=== PATIENT | female | born 1945 | race Hispanic/Latino ===

== ENCOUNTER 2016-08-08 09:25 | Day surgery (SDC) | payer MEDICARE, OTHER ==
[2015-11-10 09:09] VITALS: BMI 44.3
[2016-08-08] MEDS ORDERED: Propofol 10 mg/ml Inj (20 ML) ONE (11:38)
[2016-08-08] MEDS ORDERED: Lactated Ringer's 1,000 ML IV SCH (12:20)
[2016-08-08 12:37] VITALS: RESP 16
[2016-08-08 13:15] VITALS: BP 139/81; TEMP 97.7
[2016-08-08 13:35] VITALS: PULSE 68; O2SAT 96
== END 2016-08-08 13:56 | disposition home or self-care (01) ==
LOC: ENDO 09:25
PROVIDERS: ATTEND Internal Medicine Gastroenterology
DX: K29.50 Unspecified chronic gastritis without bleeding (principal); K44.9 Diaphragmatic hernia without obstruction or gangrene; K21.9 Gastro-esophageal reflux disease without esophagitis
CPT/HCPCS: 43239; 88305; 88342; J2704; J7040; J7120

== ENCOUNTER 2017-05-23 09:20 | Emergency (ER) | payer MEDICARE, OTHER ==
[2017-05-23 09:21] VITALS: BMI 44.3
[2017-05-23 09:36] VITALS: TEMP 98.4; O2SAT 98
--- NOTE | 2017-05-23 10:08 | ED PDOC ---
Arrival/HPI - General Chief Complaint: Trauma Time Seen by Provider: 05/23/17 09:56 Historian: Patient - History of Present Illness Narrative History of Present Illness (Text): 05/23/17 10:05 pt p/w + accidental trip and fall, just prior to ED arrival; pt was just walking [place] of the fitness center and did not see an uneven ground and proceeded to trip and fall; pt states she face-planted, NO LOC pre/post fall, no neck pain, NO numbness/tingling, no vision changes, no fever/chills/sweats, no cp/sob/palpitations, no abd pain, no n/v, no slurr speech, no urinary/bowel changes, no travel/sick contact; pt states she typically use a cane for ambulations since her abdominal surgery some times ago; pt also would use her walker; pt was walking with her cane today; pt is here for further eval; pt denied other complaints PCP: Dr Melton pt is right hand dominate tetanus: unknown Time/Duration: Prior to Arrival Symptom Onset: Sudden Symptom Course: Unchanged Quality: Tightness, Cramping Severity Level: 5, Moderate Activities at Onset: Other (walking) Context: Other (was coming out of the fitness center) Past Medical History - Provider Review Nursing Documentation Reviewed: Yes - Travel History Have you recently traveled outside [place] w/in the past 3 mons?: No - Past History Past History: No Previous - Infectious Disease Hx of Infectious Diseases: None - Tetanus Immunization Tetanus Immunization: Unknown - Reproductive Menopause: Yes - Cardiac Hx Hypertension: Yes Hx Pacemaker: No - Pulmonary Hx Respiratory Disorders: Yes Hx Bronchitis: Yes Other/Comment: had 1 asthma like attack when in park once - Neurological Hx Paralysis: No - HEENT Hx HEENT Disorder: Yes Hx Cataracts: Yes (ou but no sx yet) - Renal Hx Renal Disorder: No - Endocrine/Metabolic Hx Endocrine Disorders: No Hx Hypothyroidism: Yes - Hematological/Oncological Hx Blood Transfusions: No Hx Blood Transfusion Reaction: No - Integumentary Hx Dermatological Disorder: No - Musculoskeletal/Rheumatological Hx Musculoskeletal Disorders: Yes ("CONGENITAL EXTRA VERTEBRAE") - Gastrointestinal Hx Gastrointestinal Disorders: Yes Hx Diverticulitis: Yes Other/Comment: hemmorhoids - Genitourinary/Gynecological Hx Genitourinary Disorders: Yes Other/Comment: 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 - Psychiatric Hx Emotional Abuse: No Hx Physical Abuse: No Hx Substance Use: No - Past Surgical History Past Surgical History: No Previous - Surgical History Hx Hysterectomy: Yes Other/Comment: repair of abd hernia June 2013 & then I& D of surgical site July 2013 - Anesthesia Hx Anesthesia: Yes Hx Anesthesia Reactions: No Hx Malignant Hyperthermia: No - Suicidal Assessment Feels Threatened In Home Enviroment: No Family/Social History - Physician Review Nursing Documentation Reviewed: Yes Family/Social History: No Known Family HX Smoking Status: Never Smoked Hx Alcohol Use: No Hx Substance Use: No Hx Substance Use Treatment: No Allergies/Home Meds Allergies/Adverse Reactions: Allergies No Known Allergies Allergy (Verified 05/23/17 09:36) Home Medications: Home Meds Medication Instructions Recorded Confirmed hydroCHLOROthiazide [Microzide] 12.5 mg PO DAILY 07/23/15 05/23/17 Aspirin [Ecotrin] 81 mg PO DAILY 08/13/15 05/23/17 [id number] Ethyl Esters [OMEGA 3] 500 mg PO DAILY 08/13/15 05/23/17 Calcium/Magnesium [Calcium with 1 tab PO DAILY 08/04/16 05/23/17 Magnesium Tab] Cholecalciferol (Vitamin D3) 50,000 unit PO MON 08/04/16 05/23/17 [Vitamin D3] Ferrous Sulfate [Feosol] 325 mg PO DAILY 08/04/16 05/23/17 Ibuprofen [Advil] 400 mg PO PRN PRN 08/04/16 05/23/17 Levothyroxine [Synthroid] 125 mcg PO QD5 08/04/16 05/23/17 Naproxen Sodium [Aleve] 220 mg PO PRN PRN 08/04/16 05/23/17 Review of Systems - Review of Systems Constitutional: Normal Eyes: Normal ENT: Normal Respiratory: Normal Cardiovascular: Normal Gastrointestinal: Normal Genitourinary Female: Normal Musculoskeletal: Other (facial pain) Skin: Normal. absent: Laceration Neurological: Headache. absent: Dizziness Endocrine: Normal Hemo/Lymphatic: Normal Psychiatric: Normal Physical Exam Vital Signs Reviewed: Yes Vital Signs Temp Pulse Resp BP Pulse Ox 05/23/17 11:30 80 15 136/90 05/23/17 09:28 98.4 F 78 16 113/68 98 Temperature: Afebrile Blood Pressure: Normal Pulse: Regular Respiratory Rate: Normal Appearance: Positive for: Well-Appearing, Non-Toxic, Uncomfortable, Other (alert /awake, GCS = 15, oriented x 3, uncomfortable, NAD, cooperative, respond to questions appropriately) Pain Distress: None Mental Status: Positive for: Alert and Oriented X 3 - Systems Exam Head: Present: Normocephalic, Other (+ anterior nasal, multiple skin abrasions noted, no lacerations noted; no nasal bleeding noted; no gross swelling noted) Pupils: Present: PERRL, Other (wearing eyeglasses, no nystagmus, no photophobia , sclera anicteric, visual field intact b/l) Extroacular Muscles: Present: EOMI Conjunctiva: Present: Normal Ears: Present: Normal Mouth: Present: Moist Mucous Membranes, Normal Teeth, Other (fair dentitions, no drooling/stridor, no exudate/lesions, uvula/tongue are midline) Pharnyx: Present: Normal Nose (External): Present: Abrasion. No: Laceration, Lesions Nose (Internal): Present: Normal Inspection, No Active Bleeding, Moist. No: Septal Hematoma, Epistaxis Neck: Present: Normal Range of Motion, Trachea Midline, Other (intact ROM, no midline tenderness, no step off, no nuchal rigidity, no meningeal signs). No: MIDLINE TENDERNESS Respiratory/Chest: Present: Clear to Auscultation, Good Air Exchange, Other ( CTA b/l, no w/r/r, no accessory muscle use noted, no tachypenia) Cardiovascular: Present: Regular Rate and Rhythm, Normal S1, S2 Abdomen: Present: Normal Bowel Sounds, Other (well nourished female, no focal tenderness, no masses/rebound/guarding/rigidity, no larsen's sign, no mcburney' s point tenderness) Back: Present: Normal Inspection. No: CVA Tenderness, Midline Tenderness Upper Extremity: Present: Normal Inspection, Normal ROM, NORMAL PULSES, Neurovascularly Intact, Capillary Refill < 2s Lower Extremity: Present: Normal Inspection, NORMAL PULSES, Normal ROM, Neurovascularly Intact, Capillary Refill < 2 s, Other (strength 5/5 grossly intact in all limbs, neurovasc intact b/l, no gross deformities, + ambulatory) Neurological: Present: GCS=15, CN II-XII Intact, Speech Normal Skin: Present: Warm, Normal Color Psychiatric: Present: Alert, Oriented x 3 Medical Decision Making ED Course and Treatment: 05/23/17 10:05 Impression: face pain, s/p trip and fall i have consider all the differential diagnosis regarding pt's chief medical complaints/clinical findings, including but are not limited to: r/o open fx (r/ o facial fx) A/P: face pain, face injuries, trip and fall - ct - wound care - observe - supportive care 05/23/2017 10:[address] IMPRESSION: Unremarkable non contrast enhanced CT of the maxillofacial bones. Dictator: Angus Candelaria MD 05/23/17 12:37 pt felt some improvement pt remains ambulatory with no assistance pt is made aware of her medical results pt is encouraged wound care pt will f/u as directed pt will be discharged home Re-evaluation Time: 12:30 Reassessment Condition: Improving,but remains with symptoms - RAD Interpretation Narrative RAD Interpretations (Text): 05/23/17 12:41 PROCEDURE: CT MAXILLOFACIAL BONES WITHOUT CONTRAST HISTORY: fell face forward COMPARISON: None TECHNIQUE: Contiguous axial CT images of the maxillofacial bones were obtained. Coronal and sagittal reformats were generated. Radiation dose: Total exam DLP = 807 mGy-cm. This CT exam was performed using one or more of the following dose reduction techniques: Automated exposure control, adjustment of the mA and/or kV according to patient size, and/or use of iterative reconstruction technique. FINDINGS: NASAL BONES: Unremarkable. ORBITS: Unremarkable. PARANASAL SINUSES/ MASTOIDS: Clear. MAXILLA: Unremarkable. MANDIBLE/ TEMPOROMANDIBULAR JOINTS: Unremarkable. Radiology Orders: 05/23/17 10:04 MAXILLOFACIAL W/O CONTRAST [CT] Stat Dormitory Maid: Radiologist - Medication Orders Current Medication Orders: Discontinued Medications Oxycodone/Acetaminophen (Percocet 5/325 Mg Tab) 1 tab PO STAT STA Stop: 05/23/17 10:05 Last Admin: 05/23/17 10:17 Dose: 1 tab MAR Pain Assessment Document 05/23/17 10:17 NGA (Rec: 05/23/17 10:18 NGA [id number]) Pain Reassessment Is this a pain reassessment? Yes Sleep Is patient sleeping during reassessment? No Presence of Pain Presence of Pain Yes Pain Scale Used Pain Scale Used Numeric Location Pain Location Body Site Face Description Intensity of Pain at present 5 Tetanus/Reduced Diphtheria/Acell Pertussis (Boostrix Vaccine Inj) 0.5 ml IM .ONCE ONE Stop: 05/23/17 10:05 Last Admin: 05/23/17 10:18 Dose: 0.5 ml Immunization Registry Document 05/23/17 10:18 NGA (Rec: 05/23/17 10:18 NGA [id number]) Immunization Registry Consent Date 05/23/17 Disposition/Present on Arrival - Present on Arrival Any Indicators Present on Arrival: No History of DVT/PE: No History of Uncontrolled Diabetes: No Urinary Catheter: No History of Decub. Ulcer: No History Surgical Site Infection Following: CABG - Mediastinitis, None - Disposition Have Diagnosis and Disposition been Completed?: Yes Diagnosis: Head injury, acute, Contusion of face, Fall, Nasal abrasion Disposition: HOME/ ROUTINE Disposition Time: 12:43 Patient Plan: Discharge Condition: STABLE Discharge Instructions (ExitCare): Concussion in Adults, Taking Care of Bruises , Closed Head Injury, Contusion (DC) Print Language: TRINIDADIAN Additional Instructions: Make sure to see your doctor in 1-2 days DRINK PLENTY OF FLUIDS Keep wounds clean and dry take your medications as prescribed RETURN TO ED IF worse pain, cant breath, persistent vomiting, high fever >101- 102 for hours, altered behavior, unable to urinate, heavy/persistent bleeding, passing out, chest pain, or other medical emergencies Prescriptions: Ibuprofen [Motrin] 400 mg PO QID PRN #30 tab PRN Reason: Pain, Mild (1-3) oxyCODONE/Acetaminophen [Percocet 5/325 mg Tab] 1 tab PO TID PRN #10 tab PRN Reason: Pain, Moderate (4-7) Referrals: Jade Melton MD [Primary Care Provider] - Follow up with primary Forms: [employer] (Palestinian)
[2017-05-23] MEDS: Oxycodone/Acetaminophen 5/325 mg Tab PO STA (10:17)
[2017-05-23] MEDS: TDAP Vaccine 0.5 mL Syr IM ONE (10:18)
--- NOTE | 2017-05-23 10:53 | CT ---
PROCEDURE: CT MAXILLOFACIAL BONES WITHOUT CONTRAST HISTORY: fell face forward COMPARISON: None TECHNIQUE: Contiguous axial CT images of the maxillofacial bones were obtained. Coronal and sagittal reformats were generated. Radiation dose: Total exam DLP = 807 mGy-cm. This CT exam was performed using one or more of the following dose reduction techniques: Automated exposure control, adjustment of the mA and/or kV according to patient size, and/or use of iterative reconstruction technique. FINDINGS: NASAL BONES: Unremarkable. ORBITS: Unremarkable. PARANASAL SINUSES/ MASTOIDS: Clear. MAXILLA: Unremarkable. MANDIBLE/ TEMPOROMANDIBULAR JOINTS: Unremarkable. SKULL BASE: Unremarkable. TEMPORAL BONES: Middle ears and mastoid grossly unremarkable. OTHER FINDINGS: None. IMPRESSION: Unremarkable non contrast enhanced CT of the maxillofacial bones.
[2017-05-23 11:52] VITALS: BP 136/90; PULSE 80; RESP 15
== END 2017-05-23 13:00 | disposition home or self-care (01) ==
LOC: ED 09:20
DX: S00.83XA Contusion of other part of head, initial encounter (principal); W01.0XXA Fall on same level from slipping, tripping and stumbling without subsequent striking against object, initial encounter; Y92.89 Other specified places as the place of occurrence of the external cause; Z23 Encounter for immunization

== ENCOUNTER 2017-12-29 15:47 | Inpatient (IN) | payer MEDICARE, OTHER ==
[2017-12-29] MEDS ORDERED: Sodium Chloride 0.9% 1,000 ML IV STA (16:31)
--- NOTE | 2017-12-29 16:45 | ED PDOC ---
Arrival/HPI <Kang Melchor - Last Filed: 12/29/17 16:54> - General Historian: Patient - History of Present Illness Narrative History of Present Illness (Text): 12/29/17 19:34 72 y/o female with PMH of abdominal abscess, IBS, recurrent incisional hernias, and HTN who presents to ED c/o abdominal pain x 3 days. Describes pain as diffuse, burning, intermittent 8/10 without radiation to chest or back. Associated anorexia and feelings of generalized weakness and fatigue. Pt is tolerating PO intake, but does not feel hungry. She has not taken any medication for pain. States this pain is different from her typical IBS pain, and not relieved by defecation. Denies fevers, chills, chest pain, palpitations, syncope, N/V, diarrhea, constipation, hematochezia, urinary symptoms, vaginal bleeding, vaginal discharge, back pain. <Cheyanne Barrera - Last Filed: 12/29/17 22:38> - General Chief Complaint: Abdominal Pain Time Seen by Provider: 12/29/17 15:49 Past Medical History - Provider Review Nursing Documentation Reviewed: Yes - Past History Past History: No Previous - Infectious Disease Hx of Infectious Diseases: None - Tetanus Immunization Tetanus Immunization: Unknown - Reproductive Menopause: Yes - Cardiac Hx Hypertension: Yes (Controlled) - Pulmonary Hx Respiratory Disorders: Yes Hx Bronchitis: Yes Other/Comment: had 1 asthma like attack [place] park once - Neurological Hx Paralysis: No - HEENT Hx HEENT Disorder: Yes Hx Cataracts: Yes - Renal Hx Renal Disorder: No - Endocrine/Metabolic Hx Endocrine Disorders: No Hx Hypothyroidism: Yes - Hematological/Oncological Hx Blood Transfusions: No Hx Blood Transfusion Reaction: No - Integumentary Hx Dermatological Disorder: No - Musculoskeletal/Rheumatological Hx Musculoskeletal Disorders: Yes ("CONGENITAL EXTRA VERTEBRAE") - Gastrointestinal Hx Gastrointestinal Disorders: Yes Hx Diverticulitis: Yes Other/Comment: hemmorhoids - Genitourinary/Gynecological Hx Genitourinary Disorders: Yes Other/Comment: 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 - Psychiatric Hx Emotional Abuse: No Hx Physical Abuse: No Hx Substance Use: No - Past Surgical History Past Surgical History: No Previous - Surgical History Hx Hysterectomy: Yes Other/Comment: repair of abd hernia June 2013 & then I& D of surgical site July 2013 - Anesthesia Hx Anesthesia: Yes Hx Anesthesia Reactions: No Hx Malignant Hyperthermia: No - Suicidal Assessment Feels Threatened In Home Enviroment: No <Cheyanne Barrera - Last Filed: 12/29/17 22:38> Family/Social History - Physician Review Nursing Documentation Reviewed: Yes Family/Social History: No Known Family HX Smoking Status: Never Smoked Hx Alcohol Use: No Hx Substance Use: No Hx Substance Use Treatment: No <Cheyanne Barrera - Last Filed: 12/29/17 22:38> Allergies/Home Meds <Kang Melchor - Last Filed: 12/29/17 16:54> <Cheyanne Barrera - Last Filed: 12/29/17 22:38> Allergies/Adverse Reactions: Allergies No Known Allergies Allergy (Verified 12/29/17 15:58) Home Medications: Home Meds Medication Instructions Recorded Confirmed hydroCHLOROthiazide [Microzide] 12.5 mg PO DAILY 07/23/15 12/29/17 Aspirin [Ecotrin] 81 mg PO DAILY 08/13/15 12/29/17 Ferrous Sulfate [Feosol] 325 mg PO DAILY 08/04/16 12/29/17 Levothyroxine [Synthroid] 125 mcg PO QD5 08/04/16 12/29/17 Ranitidine HCl [Zantac] 300 mg PO BID 12/29/17 12/29/17 Review of Systems - Physician Review All systems were reviewed & negative as marked: Yes - Review of Systems Constitutional: Fatigue. absent: Fevers Eyes: absent: Vision Changes, Photophobia ENT: absent: Tinnitus, Sore Throat, Rhinorrhea, Epistaxis, Sinus Congestion Respiratory: absent: SOB, Cough, Sputum, Wheezing Cardiovascular: absent: Chest Pain, Palpitations, Syncope Gastrointestinal: Abdominal Pain. absent: Stool Changes, Constipation, Diarrhea, Nausea, Vomiting, Hematochezia, Hematemesis Genitourinary Female: Normal. absent: Dysuria, Frequency, Vaginal Bleeding, Vaginal Discharge Musculoskeletal: Normal. absent: Arthralgias, Back Pain, Myalgias Skin: Normal. absent: Rash, Skin Lesions, Cellulitis Neurological: Normal. absent: Headache, Dizziness, Focal Weakness, Gait Changes, Speech Changes Endocrine: Normal. absent: Diaphoresis Hemo/Lymphatic: Normal. absent: Adenopathy Psychiatric: Normal. absent: Anxiety, Depression <Cheyanne Barrera - Last Filed: 12/29/17 22:38> Physical Exam Vital Signs Temp Pulse Resp BP Pulse Ox 12/29/17 15:55 98 F 79 18 121/84 96 <Kang Melchor - Last Filed: 12/29/17 16:54> Vital Signs Temp Pulse Resp BP Pulse Ox 12/29/17 15:55 98 F 79 18 121/84 96 Temperature: Afebrile Blood Pressure: Normal Pulse: Regular Respiratory Rate: Normal Appearance: Positive for: Well-Appearing, Non-Toxic, Comfortable Pain Distress: None Mental Status: Positive for: Alert and Oriented X 3 - Systems Exam Head: Present: Atraumatic, Normocephalic Pupils: Present: PERRL Extroacular Muscles: Present: EOMI Conjunctiva: Present: Normal Mouth: Present: Moist Mucous Membranes Neck: Present: Normal Range of Motion Respiratory/Chest: Present: Clear to Auscultation, Good Air Exchange. No: Respiratory Distress, Accessory Muscle Use Cardiovascular: Present: Regular Rate and Rhythm, Normal S1, S2. No: Murmurs Abdomen: Present: Tenderness (mild, diffuse tenderness; tenderness over hernia), Normal Bowel Sounds, Hernias (large; left side lateral to umbilicus; unable to completely reduce). No: Distention, Peritoneal Signs, Rebound, Guarding Back: Present: Normal Inspection Upper Extremity: Present: Normal Inspection. No: Cyanosis, Edema Lower Extremity: Present: Normal Inspection. No: Edema Neurological: Present: GCS=15, CN II-XII Intact, Speech Normal Skin: Present: Warm, Dry, Normal Color. No: Rashes Psychiatric: Present: Alert, Oriented x 3, Normal Insight, Normal Concentration <HollyCheyanne - Last Filed: 12/29/17 22:38> Medical Decision Making - Lab Interpretations Lab Results: 12/29/17 16:30 Lab Results 12/29/17 16:30: WBC 8.7, RBC 4.41, Hgb 14.1, Hct 43.2, MCV 98.0, MCH 32.0, MCHC 32.6, RDW 14.0, Plt Count 206, MPV 10.1, Gran % 67.4, Lymph % (Auto) 22.0, [place] % (Auto) 9.0 H, Eos % (Auto) 1.4 L, Baso % (Auto) 0.2, Gran # 5.84, Lymph # (Auto) 1.9, [place] # (Auto) 0.8 H, Eos # (Auto) 0.1, Baso # (Auto) 0.02 - RAD Interpretation Radiology Orders: 12/29/17 16:53 ABDOMEN & PELVIS [ABD PELVIS PO & IV CONTRAST] [CT] Stat - Medication Orders Current Medication Orders: Sodium Chloride (Sodium Chloride 0.9%) 1,000 mls @ 999 mls/hr IV .Q1H1M STA Stop: 12/29/17 17:31 Discontinued Medications Pantoprazole Sodium (Protonix Inj) 40 mg IVP STAT STA Stop: 12/29/17 16:43 <Kang Melchor - Last Filed: 12/29/17 16:54> ED Course and Treatment: 12/29/17 16:41 Initial Plan: --CBC, CMP, Lipase --UA, urine culture --CT with IV and PO contrast to r/o incarcerated hernia --EKG --IVF --Protonix CBC: wnl CMP: wnl Lipase: wnl UA: trace blood, leuk esterase EKG: rate 61; normal sinus rhythm; normal intervals; no signs of acute ischemia 12/29/17 19:42 On re-evaluation, pt reports decreased pain. Exam is unchanged. Pt awaiting CT scan. Will endorse pt to Jasmeet Cramer PA-C. Pt made aware of change of care. - Lab Interpretations Lab Results: 12/29/17 16:30 12/29/17 16:30 Lab Results 12/29/17 19:00: Urine Color Yellow, Urine Appearance Slight-cloudy, Urine pH 6.0, Ur Specific [place] 1.010, Urine Protein Negative, Urine Glucose (UA) Negative, Urine Ketones Trace H, Urine Blood Negative, Urine Nitrate Positive H, Urine Bilirubin Negative, Urine Urobilinogen 0.2, Ur Leukocyte Esterase Small H , Urine RBC Negative, Urine WBC 2 - 5, Ur Epithelial Cells 1 - 3, Urine Bacteria Mod 12/29/17 16:30: Sodium 139, Potassium 3.5 L, Chloride 102, Carbon Dioxide 28, Anion Gap 13, BUN 25 H, Creatinine 1.1, Est GFR ( Amer) 59, Est GFR (Non- Af Amer) 49, Random Glucose 105, Calcium 10.5, Total Bilirubin 0.8, AST 24, ALT 22, Alkaline Phosphatase 83, Total Protein 7.9, Albumin 4.1, Globulin 3.8, Albumin/Globulin Ratio 1.1, Lipase 211 12/29/17 16:30: WBC 8.7, RBC 4.41, Hgb 14.1, Hct 43.2, MCV 98.0, MCH 32.0, MCHC 32.6, RDW 14.0, Plt Count 206, MPV 10.1, Gran % 67.4, Lymph % (Auto) 22.0, [place] % (Auto) 9.0 H, Eos % (Auto) 1.4 L, Baso % (Auto) 0.2, Gran # 5.84, Lymph # (Auto) 1.9, [place] # (Auto) 0.8 H, Eos # (Auto) 0.1, Baso # (Auto) 0.02 I have reviewed the lab results: Yes - EKG Interpretation EKG Interpretation (Text): 12/29/17 22:30 rate 61; normal sinus rhythm; normal intervals; no signs of acute ischemia Interpreted by ED Physician: Yes Type: 12 lead EKG - Medication Orders Current Medication Orders: Sodium Chloride (Sodium Chloride 0.9%) 1,000 mls @ 999 mls/hr IV .Q1H1M STA Stop: 12/29/17 17:31 - Transfer of Care Patient signed out to Dr:: Franki Cramer PA-C Pending Radiology Studies:: CT Abd/Pelvis w/ IV and PO contrast <Cheyanne Barrera - Last Filed: 12/29/17 22:38> - PA / FIRE CONTROL MECHANIC / Resident Statement MD/DO has examined the patient and agrees with the treatment plan. <Kang Melchor - Last Filed: 12/29/17 16:54> Disposition/Present on Arrival <Kang Melchor - Last Filed: 12/29/17 16:54> - Present on Arrival Any Indicators Present on Arrival: No History of DVT/PE: No History of Uncontrolled Diabetes: No Urinary Catheter: No History of Decub. Ulcer: No History Surgical Site Infection Following: CABG - Mediastinitis, None - Disposition Have Diagnosis and Disposition been Completed?: No Disposition Time: 19:48 Patient Plan: Other (Endorse to Franki Cramer PA-C) <Cheyanne Barrera - Last Filed: 12/29/17 22:38> - Disposition Diagnosis: UTI (urinary tract infection), Hypokalemia, Abdominal pain Patient Problems: Current Active Problems Problem Status Onset Abdominal pain Acute Hypokalemia Acute UTI (urinary tract infection) Acute Condition: IMPROVED Referrals: Jade Melton MD [Primary Care Provider] - Follow up with primary Forms: [employer] ([place]ian)
[2017-12-29 16:47] LABS: BASO # 0.02 K/mm3 (0.0-2.0); BASO % 0.2 % (0.0-3.0); EOS # 0.1 (0.0-0.7); EOS % 1.4 % (1.5-5.0); GRAN # 5.84 (1.4-6.5); GRAN % 67.4 % (50.0-68.0); HEMOGLOBIN 14.1 g/dL (12.0-16.0); LYMPH # 1.9 (1.2-3.4); MEAN CORPUSCULAR HGB CONC 32.6 g/dl (31.0-37.0); MEAN PLATELET VOLUME 10.1 fl (7.0-11.0); MONO # 0.8 (0.1-0.6); RBC 4.41 10^6/uL (3.5-6.1); WHITE BLOOD COUNT 8.7 10^3/ul (4.5-11.0)
[2017-12-29 16:57] LABS: ALB/GLOB RATIO 1.1 (1.1-1.8); ALBUMIN 4.1 g/dL (3.0-4.8); CALCIUM 10.5 mg/dL (8.4-10.5)
[2017-12-29] MEDS ORDERED: Iohexol 240 (50 ml) ONE (17:47)
[2017-12-29 19:29] LABS: URINE APPEARANCE SLIGHT-CLOUDY (CLEAR); URINE BILIRUBIN NEGATIVE (NEGATIVE); URINE BLOOD NEGATIVE (NEGATIVE); URINE COLOR YELLOW (YELLOW); URINE GLUCOSE (UA) NEGATIVE (NEGATIVE); URINE LEUKOCYTE ESTERASE SMALL Leu/uL (NEGATIVE); URINE PROTEIN NEGATIVE mg/dL (<30 mg/dL); URINE UROBILINOGEN 0.2 E.U./dL (<1 E.U./dL)
[2017-12-29 19:32] LABS: URINE BACTERIA MOD (NEG); URINE RBC NEGATIVE /hpf (0-2)
[2017-12-29] MEDS ORDERED: Potassium Chloride 20 mEq ER Tab PO STA (19:34)
[2017-12-29] MEDS ORDERED: cefTRIAXone 1 gm 1 GM/100 ML BAG IVPB STA (19:37)
--- NOTE | 2017-12-29 19:38 | ED PDOC ---
Physical Exam Vital Signs Reviewed: Yes Vital Signs Temp Pulse Resp BP Pulse Ox 12/29/17 19:25 97.8 F 64 18 103/72 97 12/29/17 15:55 98 F 79 18 121/84 96 Temperature: Afebrile Blood Pressure: Normal Pulse: Regular Respiratory Rate: Normal Appearance: Positive for: Well-Appearing, Non-Toxic, Comfortable Pain Distress: Mild Mental Status: Positive for: Alert and Oriented X 3 - Systems Exam Head: Present: Atraumatic, Normocephalic Pupils: Present: PERRL Extroacular Muscles: Present: EOMI Conjunctiva: Present: Normal Mouth: Present: Moist Mucous Membranes Neck: Present: Normal Range of Motion Respiratory/Chest: Present: Clear to Auscultation, Good Air Exchange. No: Respiratory Distress, Accessory Muscle Use Cardiovascular: Present: Regular Rate and Rhythm, Normal S1, S2. No: Murmurs Abdomen: Present: Tenderness (epigastric), Hernias (Lt. sided hernia side of approx. [id number] ). No: Distention, Peritoneal Signs, Rebound, Guarding Back: Present: Normal Inspection Upper Extremity: Present: Normal Inspection. No: Cyanosis, Edema Lower Extremity: Present: Normal Inspection. No: Edema Neurological: Present: GCS=15, CN II-XII Intact, Speech Normal, Motor Func Grossly Intact, Gait Normal, Memory Normal Skin: Present: Warm, Dry, Normal Color. No: Rashes Psychiatric: Present: Alert, Oriented x 3, Normal Insight, Normal Concentration Medical Decision Making ED Course and Treatment: 12/29/17 19:35 -Case endorsed by MELISSA Barrera for the pending radiology study -EKG:: NSR @ 61 BPM, no ST elevation or depression, no T wave inversion. -Labs reviewed by me with no acute findings except K+ 3.5 (potassium chloride 20meq po ordered), BUN 25 (fluid ordered already). -UA show +UTI ( IV rocephine ordered by me). -Pending CT abdomen and pelvis. 12/29/17 22:15 -Pt. has abdominal pain, will try pepcid and reassess 12/29/17 22:31 -CT show: 1. There are 2 anterior abdominal wall hernias. The midline hernia contains stomach. The second is left parasagittal and contains a segment of transverse colon with inflammatory changes surrounding the colon within the hernia. 2. There is a moderate size hiatal hernia 3. The proximal colon is dilated to the mid transverse level where there appears to be a transition point, see coronal image 34 series 601. The transition point is the left parasagittal hernia. 4. The heart is not enlarged. The pulmonary bases are well-aerated. -Morphine 4mg IV ordered with ice pack for reduction of the hernia. 12/29/17 22:48 -I attempted to reduce the hernia, hernia is much smaller and reduced on Trendelenburg position, feels better, paging the Dr. Melton for admission as she would need abdominal surgery. -Pt. is tolerating po fluid, able to pass gas, admits constipated. 12/29/17 23:10 -I spoke to DR. Melton about this case/labs/radiology study, request Dr. Elijah Terry to be on this case for consult, agreed to admit to her service. -I spoke to the surgical assist DR. Tesfaye, discussed about the case, will come to evaluate the patient and discussed with DR. Terry for surgery. -Case discussed and examined by Dr. Mckenna, he agreed on the care/treatment and admission plan. - Lab Interpretations Lab Results: 12/29/17 16:30 12/29/17 16:30 Lab Results 12/29/17 19:00: Urine Color Yellow, Urine Appearance Slight-cloudy, Urine pH 6.0, Ur Specific [place] 1.010, Urine Protein Negative, Urine Glucose (UA) Negative, Urine Ketones Trace H, Urine Blood Negative, Urine Nitrate Positive H, Urine Bilirubin Negative, Urine Urobilinogen 0.2, Ur Leukocyte Esterase Small H, Urine RBC Negative, Urine WBC 2 - 5, Ur Epithelial Cells 1 - 3, Urine Bacteria Mod 12/29/17 16:30: Sodium 139, Potassium 3.5 L, Chloride 102, Carbon Dioxide 28, Anion Gap 13, BUN 25 H, Creatinine 1.1, Est GFR ( Amer) 59, Est GFR (Non- Af Amer) 49, Random Glucose 105, Calcium 10.5, Total Bilirubin 0.8, AST 24, ALT 22, Alkaline Phosphatase 83, Total Protein 7.9, Albumin 4.1, Globulin 3.8, Albumin/Globulin Ratio 1.1, Lipase 211 12/29/17 16:30: WBC 8.7, RBC 4.41, Hgb 14.1, Hct 43.2, MCV 98.0, MCH 32.0, MCHC 32.6, RDW 14.0, Plt Count 206, MPV 10.1, Gran % 67.4, Lymph % (Auto) 22.0, [place] % (Auto) 9.0 H, Eos % (Auto) 1.4 L, Baso % (Auto) 0.2, Gran # 5.84, Lymph # (Auto) 1.9, [place] # (Auto) 0.8 H, Eos # (Auto) 0.1, Baso # (Auto) 0.02 - RAD Interpretation Radiology Orders: 12/29/17 16:53 ABDOMEN & PELVIS [ABD PELVIS PO & IV CONTRAST] [CT] Stat EXAM: CT Abdomen and Pelvis with IV contrast CLINICAL HISTORY: Diffuse, burning abdominal pain TECHNIQUE: Axial computed tomography images of the abdomen and pelvis with intravenous contrast. CONTRAST: With intravenousand oral contrast. COMPARISON: None provided. FINDINGS: LUNG BASES: The heart is not enlarged. The pulmonary bases are well-aerated. LIVER: Unremarkable. GALLBLADDER AND BILE DUCTS: The gallbladder appears within normal limits. No radioopaque gallstones are seen. No biliary ductal dilatation is evident. PANCREAS: Unremarkable. SPLEEN: Unremarkable. ADRENAL GLANDS: Unremarkable. KIDNEYS, URETERS, AND BLADDER: The kidneys appear within normal limits. There is no hydronephrosis or hydroureter. No urinary calculi are seen. STOMACH AND BOWEL: Tthere are 2 anterior abdominal wall hernias. The midline hernia contains stomach. The second is left parasagittal and contains a segment of transverse colon with inflammatory changes surrounding the colon within the hernia. There is a moderate size hiatal hernia Tthe proximal colon is dilated to the mid transverse level where there appears to be a transition point, see coronal image 34 series 601. The transition point is the left parasagittal hernia. APPENDIX: No evidence of acute appendicitis on CT examination. PERITONEUM: No free fluid. No free air. LYMPH NODES: No lymphadenopathy is evident. REPRODUCTIVE: Unremarkable as visualized. VASCULATURE: No evidence of abdominal aortic aneurysm. BONES: No aggressive appearing osseous lesion. No acute osseous pathology evident. IMPRESSION: 1. There are 2 anterior abdominal wall hernias. The midline hernia contains stomach. The second is left parasagittal and contains a segment of transverse colon with inflammatory changes surrounding the colon within the hernia. 2. There is a moderate size hiatal hernia 3. The proximal colon is dilated to the mid transverse level where there appears to be a transition point, see coronal image 34 series 601. The transition point is the left parasagittal hernia. 4. The heart is not enlarged. The pulmonary bases are well-aerated. Cr[employer] Treater: Radiologist - Medication Orders Current Medication Orders: Discontinued Medications Sodium Chloride (Sodium Chloride 0.9%) 1,000 mls @ 999 mls/hr IV .Q1H1M STA Stop: 12/29/17 17:31 Last Admin: 12/29/17 16:57 Dose: 999 mls/hr eMAR Start Stop Document 12/29/17 16:57 EQ (Rec: 12/29/17 16:57 EQ [place] [id number]) Intravenous Solution Start Date 12/29/17 Start Time 16:57 Pantoprazole Sodium (Protonix Inj) 40 mg IVP STAT STA Stop: 12/29/17 16:43 Last Admin: 12/29/17 16:57 Dose: 40 mg IVP Administration Document 12/29/17 16:57 EQ (Rec: 12/29/17 16:58 EQ [place] [id number]) Charges for Administration # of IVP Administrations 1 - PA / [employer] / Resident Statement / has reviewed & agrees with the documentation as recorded. / has examined the patient and agrees with the treatment plan. Disposition/Present on Arrival - Present on Arrival Any Indicators Present on Arrival: No History of DVT/PE: No History of Uncontrolled Diabetes: No Urinary Catheter: No History of Decub. Ulcer: No History Surgical Site Infection Following: None - Disposition Have Diagnosis and Disposition been Completed?: Yes Diagnosis: UTI (urinary tract infection), Hypokalemia, Abdominal hernia Disposition: HOSPITALIZED Disposition Time: 22:49 Patient Plan: Admission Patient Problems: Current Active Problems Problem Status Onset Abdominal hernia with obstruction and without gangrene Acute Abdominal pain Acute Hypokalemia Acute UTI (urinary tract infection) Acute Condition: STABLE
[2017-12-29] MEDS ORDERED: Iohexol 350 MG/100 ML VIAL ONE (20:35)
[2017-12-29] MEDS ORDERED: Morphine 4 mg/ml ISec IVP STA (22:31)
[2017-12-29] MEDS: Sodium Chloride 0.9% 1,000 ML IV SCH (22:38)
[2017-12-30 03:20] VITALS: BMI 33.2
[2017-12-30] MEDS: Oxycodone/Acetaminophen 5/325 mg Tab PO PRN (06:22)
--- NOTE | 2017-12-30 06:52 | CP.PCM.CON ---
<Brien Bhatt - Last Filed: 12/30/17 06:25> History of Present Illness - History of Present Illness History of Present Illness: General Surgery Consult Note for Dr. Burch CC: Ventral Hernia This is a 72F with a PMH HTN, Hypothyroid, Fibromyalgia, and a multiple surgical history, and 2 longstanding ventral hernias one containing stomach and the otehr containing bowel. They usually "go back in" when she lays down and bulge when she sits up. Sometimes one of them will get stuck out and cuase her small periords of sever pain. SHe has not passed gas or had a BM in 3 days however she is tolerating clears. She denies any fevers or chills at home denies nausea vomiting or diarrhea. PMH: Fibromyalgia, Uterine CA s/p resection, IBS, Hypothyroid PSH: Hysterectomy, Ventral hernia, Abdominal Abscess Review of Systems - Review of Systems All systems: reviewed and no additional remarkable complaints except Review of Systems: 12 point review of symptoms conducted and negative aside from her symptomatic incarcerated ventral hernia Past Patient History - Infectious Disease Hx of Infectious Diseases: None - Tetanus Immunizations Tetanus Immunization: Unknown - Past Social History Smoking Status: Former Smoker - CARDIAC Hx Hypertension: Yes (Controlled) - PULMONARY Hx Respiratory Disorders: Yes Hx Bronchitis: Yes Other/Comment: had 1 asthma like attack when in park once - NEUROLOGICAL Hx Neurological Disorder: No - HEENT Hx HEENT Problems: Yes Hx Cataracts: Yes - RENAL Hx Chronic Kidney Disease: No - ENDOCRINE/METABOLIC Hx Endocrine Disorders: No Hx Hypothyroidism: Yes - HEMATOLOGICAL/ONCOLOGICAL Hx Blood Disorders: No - INTEGUMENTARY Hx Dermatological Problems: No - MUSCULOSKELETAL/RHEUMATOLOGICAL Hx Musculoskeletal Disorders: Yes ("CONGENITAL EXTRA VERTEBRAE") Hx Falls: No - GASTROINTESTINAL Hx Gastrointestinal Disorders: Yes Hx Diverticulitis: Yes Other/Comment: hemmorhoids - GENITOURINARY/GYNECOLOGICAL Hx Genitourinary Disorders: Yes Other/Comment: 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 Hysterectomy, date unknown - PSYCHIATRIC Hx Emotional Abuse: No Hx Physical Abuse: No Hx Substance Use: No - SURGICAL HISTORY Hx Hysterectomy: Yes Other/Comment: repair of abd hernia June 2013 & then I& D of surgical site July 2013 - ANESTHESIA Hx Anesthesia: Yes Hx Anesthesia Reactions: No Hx Malignant Hyperthermia: No Meds Allergies/Adverse Reactions: Allergies Allergy/AdvReac Type Severity Reaction Status Date / Time No Known Allergies Allergy Verified 12/29/17 15:58 - Medications Medications: Current Medications Docusate Sodium (Colace) 100 mg PO BID [facility] Famotidine (Pepcid) 40 mg PO Q12 [facility] Ferrous Sulfate (Feosol) 324 mg PO DAILY [facility] Hydrochlorothiazide (Microzide) 12.5 mg PO DAILY [facility] Sodium Chloride (Sodium Chloride 0.9%) 1,000 mls @ 75 mls/hr IV .[id number] [facility] Last Admin: 12/29/17 22:38 Dose: 75 mls/hr Levothyroxine Sodium (Synthroid) 125 mcg PO ACB [facility] Oxycodone/Acetaminophen (Percocet 5/325 Mg Tab) 1 tab PO Q4H PRN PRN Reason: Pain, moderate (4-7) Stop: 01/02/18 00:19 Last Admin: 12/30/17 06:22 Dose: 1 tab Physical Exam - Constitutional Appears: Non-toxic, No Acute Distress - Head Exam Head Exam: ATRAUMATIC, NORMOCEPHALIC - Eye Exam Eye Exam: EOMI - ENT Exam ENT Exam: Mucous Membranes Moist - Respiratory Exam Respiratory Exam: NORMAL BREATHING PATTERN - Cardiovascular Exam Cardiovascular Exam: +S1, +S2 - GI/Abdominal Exam GI & Abdominal Exam: Hernia. absent: Distended, Firm, Guarding, Soft, Tenderness - Neurological Exam Neurological exam: Alert, Oriented x3 - Psychiatric Exam Psychiatric exam: Normal Affect, Normal Mood - Skin Skin Exam: Dry, Intact Results - Vital Signs Recent Vital Signs: Last Vital Signs Temp 98.6 F 12/29/17 22:53 Pulse 64 12/30/17 01:25 Resp 18 12/30/17 01:25 BP 104/72 12/29/17 23:31 Pulse Ox 99 12/29/17 23:31 - Labs Result Diagrams: 12/29/17 16:30 12/29/17 16:30 Labs: Laboratory Results - last 24 hr 12/29/17 12/29/17 12/29/17 16:30 16:30 19:00 WBC 8.7 RBC 4.41 Hgb 14.1 Hct 43.2 MCV 98.0 MCH 32.0 MCHC 32.6 RDW 14.0 Plt Count 206 MPV 10.1 Gran % 67.4 Lymph % (Auto) 22.0 [place] % (Auto) 9.0 H Eos % (Auto) 1.4 L Baso % (Auto) 0.2 Gran # 5.84 Lymph # (Auto) 1.9 [place] # (Auto) 0.8 H Eos # (Auto) 0.1 Baso # (Auto) 0.02 Sodium 139 Potassium 3.5 L Chloride 102 Carbon Dioxide 28 Anion Gap 13 BUN 25 H Creatinine 1.1 Est GFR ( Amer) 59 Est GFR (Non-Af Amer) 49 Random Glucose 105 Calcium 10.5 Total Bilirubin 0.8 AST 24 ALT 22 Alkaline Phosphatase 83 Total Protein 7.9 Albumin 4.1 Globulin 3.8 Albumin/Globulin Ratio 1.1 Lipase 211 Urine Color Yellow Urine Appearance Slight-cloudy Urine pH 6.0 Ur Specific [place] 1.010 Urine Protein Negative Urine Glucose (UA) Negative Urine Ketones Trace H Urine Blood Negative Urine Nitrate Positive H Urine Bilirubin Negative Urine Urobilinogen 0.2 Ur Leukocyte Esterase Small H Urine RBC Negative Urine WBC 2 - 5 Ur Epithelial Cells 1 - 3 Urine Bacteria Mod Assessment & Plan - Assessment and Plan (Free Text) Assessment: 72 F with an incarcerated ventral hernia NPO past midight OR in AM D/W Dr. Marcin Bhatt PGY3 <Elijah Burch - Last Filed: 01/05/18 14:23> Meds - Medications Medications: Current Medications Cyclobenzaprine HCl (Flexeril) 5 mg PO Q8 [facility] Last Admin: 01/05/18 13:17 Dose: 5 mg Docusate Sodium (Colace) 100 mg PO BID [facility] Last Admin: 01/05/18 09:45 Dose: 100 mg Enoxaparin Sodium (Lovenox) 40 mg SC DAILY [facility]; Protocol Last Admin: 01/05/18 09:45 Dose: 40 mg Famotidine (Pepcid) 40 mg PO Q12 [facility] Last Admin: 01/05/18 09:45 Dose: 40 mg Ferrous Sulfate (Feosol) 324 mg PO DAILY [facility] Last Admin: 01/05/18 09:45 Dose: 324 mg Hydrochlorothiazide (Microzide) 12.5 mg PO DAILY [facility] Last Admin: 01/05/18 09:45 Dose: 12.5 mg Cefazolin Sodium (Ancef 1gm In Ns) 1 gm in 100 mls @ 100 mls/hr IVPB Q8 [facility]; Protocol Last Admin: 01/05/18 13:11 Dose: 100 mls/hr Potassium Chloride 20 meq/ (Dextrose/Sodium Chloride) 1,010 mls @ 120 mls/hr IV .[id number] [facility] Last Admin: 01/05/18 13:12 Dose: 120 mls/hr Ketorolac Tromethamine (Toradol) 15 mg IVP Q6 [facility] Last Admin: 01/05/18 11:35 Dose: 15 mg Levothyroxine Sodium (Synthroid) 125 mcg PO 0600 [facility] Last Admin: 01/05/18 05:28 Dose: 125 mcg Lidocaine (Lidoderm) 1 ea TD DAILY [facility] Last Admin: 01/05/18 09:45 Dose: 1 ea Tramadol HCl (Ultram) 50 mg PO TID PRN PRN Reason: Pain, moderate (4-7) Results - Vital Signs Recent Vital Signs: Last Vital Signs Temp 97.4 F L 01/05/18 08:02 Pulse 69 01/05/18 08:02 Resp 20 01/05/18 08:02 BP 99/67 L 01/05/18 08:02 Pulse Ox 96 01/05/18 08:02 - Labs Result Diagrams: 01/04/18 07:40 01/04/18 07:40 Labs: Laboratory Results - last 24 hr 01/02/18 08:10 Crossmatch See Detail Assessment & Plan - Assessment and Plan (Free Text) Plan: Dx 2 Ventral Hernias(one with Incarcerated 5 cm Fecalith) rial NPO-Liquids before surgery This consult done under my direct supervision Ara Burch MD FACS
[2017-12-30] MEDS ORDERED: Levothyroxine 125 MCG TAB PO SCH (07:30)
[2017-12-30 10:03] LABS: BASO # 0.01 K/mm3 (0.0-2.0); BASO % 0.1 % (0.0-3.0); EOS # 0.2 (0.0-0.7); EOS % 2.2 % (1.5-5.0); GRAN # 4.69 (1.4-6.5); GRAN % 64.4 % (50.0-68.0); LYMPH % 27.9 % (22.0-35.0); MEAN CORPUSCULAR HEMOGLOBIN 31.7 pg (25.0-35.0); MEAN CORPUSCULAR HGB CONC 32.3 g/dl (31.0-37.0); MONO # 0.4 (0.1-0.6); MONO % 5.4 % (1.0-6.0); RBC 4.1 10^6/uL (3.5-6.1); WHITE BLOOD COUNT 7.3 10^3/ul (4.5-11.0)
[2017-12-30 10:06] LABS: ALBUMIN 3.6 g/dL (3.0-4.8); ALT/SGPT 21 U/L (7-56); AST/SGOT 18 U/L (14-36); BLOOD UREA NITROGEN 20 mg/dL (7-21); GFR NON-AFRICAN AMERICAN 55
--- NOTE | 2017-12-30 10:27 | CT ---
Date of service: 12/29/2017 PROCEDURE: CT Abdomen and Pelvis with contrast HISTORY: abdominal pain, r/o incarcerated hernia COMPARISON: 08/26/2015. CT abdomen and pelvis. TECHNIQUE: Intravenous contrast dose: 100 cc Omnipaque 350 Radiation dose: Total exam DLP = 1057.89 mGy-cm. This CT exam was performed using one or more of the following dose reduction techniques: Automated exposure control, adjustment of the mA and/or kV according to patient size, and/or use of iterative reconstruction technique. FINDINGS: LOWER THORAX: Stable hiatal hernia. LIVER: Hepatic steatosis. No focal masses. No intrahepatic bile duct dilatation or perihepatic ascites. GALLBLADDER AND BILE DUCTS: Unremarkable. PANCREAS: Unremarkable. No gross lesion or ductal dilatation. SPLEEN: Unremarkable. ADRENALS: Unremarkable. No mass. KIDNEYS AND URETERS: Right kidney: Unremarkable. No hydronephrosis. No solid mass. 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 Similar findings identified on the prior study. VASCULATURE: Unremarkable. No aortic aneurysm. No atherosclerotic calcification or mural plaque present. BOWEL: Anterior abdominal wall hernia containing portions of transverse colon. The colon proximal to this is distended including transverse colon and ascending colon in its entirety. At the site of the hernia, inflammatory changes affect at the transition point. This is consistent with incarceration. These are new findings compared to the prior study. Fecal impaction. 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 This is a stable finding. APPENDIX: Normal appendix. PERITONEUM: Unremarkable. No free fluid. No free air. LYMPH NODES: Unremarkable. No enlarged lymph nodes. BLADDER: Unremarkable. REPRODUCTIVE: Prior hysterectomy BONES: No acute fracture. Scoliosis, secondary degenerative change at multiple levels. OTHER FINDINGS: None. IMPRESSION: Anterior abdominal wall hernia containing portions of the transverse colon. Inflammatory changes, thickening of the wall of the colon at the site of the hernia indicates incarceration with proximal obstruction. Additional benign and/or incidental findings described above. These findings were seen previously. Concordant results (preliminary interpretation) provided by [employer]. Procedure Completed: 21:01. Preliminary Report: Dictated and Authenticated: 22:20. Final Interpretation: 10:23. December 30, 2017
--- NOTE | 2017-12-30 10:51 | CP.PCM.CON ---
History of Present Illness - History of Present Illness History of Present Illness: Awake, alert, no distress, for hernia surgery Reason for consultation: Cardiac evaluation for pre-op ventral hernia surgery Brief history of present illness: A 72 year old retired, female who came in to the ER due to diffuse abdominal pain radiating to chest and back for the past 3 days prior to admission. She also complaints of generalized weakness and fatigue. History of hypertension, hypothyroidism, fibromyalgia, ventral hernia, uterine cancer post resection, irritable bowel syndrome. Seen and examined by me and Dr. Guevara Review of Systems - Review of Systems All systems: reviewed and no additional remarkable complaints except Review of Systems: as per HPI Past Patient History - Infectious Disease Hx of Infectious Diseases: None - Tetanus Immunizations Tetanus Immunization: Unknown - Past Social History Smoking Status: Former Smoker - CARDIAC Hx Hypertension: Yes (Controlled) - PULMONARY Hx Respiratory Disorders: Yes Hx Bronchitis: Yes Other/Comment: had 1 asthma like attack when in park once - NEUROLOGICAL Hx Neurological Disorder: No - HEENT Hx HEENT Problems: Yes Hx Cataracts: Yes - RENAL Hx Chronic Kidney Disease: No - ENDOCRINE/METABOLIC Hx Endocrine Disorders: No Hx Hypothyroidism: Yes - HEMATOLOGICAL/ONCOLOGICAL Hx Blood Disorders: No - INTEGUMENTARY Hx Dermatological Problems: No - MUSCULOSKELETAL/RHEUMATOLOGICAL Hx Musculoskeletal Disorders: Yes ("CONGENITAL EXTRA VERTEBRAE") Hx Falls: No - GASTROINTESTINAL Hx Gastrointestinal Disorders: Yes Hx Diverticulitis: Yes Other/Comment: hemmorhoids - GENITOURINARY/GYNECOLOGICAL Hx Genitourinary Disorders: Yes Other/Comment: 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 Hysterectomy, date unknown - PSYCHIATRIC Hx Emotional Abuse: No Hx Physical Abuse: No Hx Substance Use: No - SURGICAL HISTORY Hx Hysterectomy: Yes Other/Comment: repair of abd hernia June 2013 & then I& D of surgical site July 2013 - ANESTHESIA Hx Anesthesia: Yes Hx Anesthesia Reactions: No Hx Malignant Hyperthermia: No Meds Allergies/Adverse Reactions: Allergies Allergy/AdvReac Type Severity Reaction Status Date / Time No Known Allergies Allergy Verified 12/29/17 15:58 - Medications Medications: Current Medications Docusate Sodium (Colace) 100 mg PO BID [facility] Last Admin: 12/30/17 09:10 Dose: 100 mg Famotidine (Pepcid) 40 mg PO Q12 [facility] Last Admin: 12/30/17 09:11 Dose: 40 mg Ferrous Sulfate (Feosol) 324 mg PO DAILY [facility] Last Admin: 10/21/18 09:11 Dose: 324 mg Hydrochlorothiazide (Microzide) 12.5 mg PO DAILY [facility] Last Admin: 12/30/17 09:11 Dose: 12.5 mg Sodium Chloride (Sodium Chloride 0.9%) 1,000 mls @ 75 mls/hr IV .[id number] [facility] Last Admin: 12/29/17 22:38 Dose: 75 mls/hr Levothyroxine Sodium (Synthroid) 125 mcg PO 0600 [facility] Oxycodone/Acetaminophen (Percocet 5/325 Mg Tab) 1 tab PO Q4H PRN PRN Reason: Pain, moderate (4-7) Stop: 01/02/18 00:19 Last Admin: 12/30/17 06:22 Dose: 1 tab Physical Exam - Constitutional Appears: Non-toxic, No Acute Distress - Head Exam Head Exam: NORMAL INSPECTION, NORMOCEPHALIC - Eye Exam Eye Exam: Normal appearance Pupil Exam: NORMAL ACCOMODATION - ENT Exam ENT Exam: Mucous Membranes Dry, Mucous Membranes Moist, Normal Exam - Neck Exam Neck exam: Positive for: Full Rom, Normal Inspection - Respiratory Exam Respiratory Exam: Clear to Auscultation Bilateral, NORMAL BREATHING PATTERN - Cardiovascular Exam Cardiovascular Exam: +S1, +S2 Additional comments: No JVD, No murmur denies chest pain - GI/Abdominal Exam GI & Abdominal Exam: Diminished Bowel Sounds, Guarding Additional comments: dull discomfort denies nausea,denies vomiting - Extremities Exam Extremities exam: Positive for: full ROM, normal capillary refill - Neurological Exam Neurological exam: Alert, Oriented x3 - Psychiatric Exam Psychiatric exam: Normal Affect, Normal Mood - Skin Skin Exam: Dry, Intact, Normal Color, Warm Results - Vital Signs Recent Vital Signs: Last Vital Signs Temp 98.5 F 12/30/17 08:04 Pulse 62 12/30/17 08:04 Resp 20 12/30/17 08:04 BP 120/74 12/30/17 08:04 Pulse Ox 95 12/30/17 08:04 - Labs Result Diagrams: 12/30/17 09:30 12/30/17 09:30 Labs: Laboratory Results - last 24 hr 12/29/17 12/29/17 12/29/17 16:30 16:30 19:00 WBC 8.7 RBC 4.41 Hgb 14.1 Hct 43.2 MCV 98.0 MCH 32.0 MCHC 32.6 RDW 14.0 Plt Count 206 MPV 10.1 Gran % 67.4 Lymph % (Auto) 22.0 Storey % (Auto) 9.0 H Eos % (Auto) 1.4 L Baso % (Auto) 0.2 Gran # 5.84 Lymph # (Auto) 1.9 Storey # (Auto) 0.8 H Eos # (Auto) 0.1 Baso # (Auto) 0.02 Sodium 139 Potassium 3.5 L Chloride 102 Carbon Dioxide 28 Anion Gap 13 BUN 25 H Creatinine 1.1 Est GFR ( Amer) 59 Est GFR (Non-Af Amer) 49 Random Glucose 105 Calcium 10.5 Phosphorus Magnesium Total Bilirubin 0.8 AST 24 ALT 22 Alkaline Phosphatase 83 Total Protein 7.9 Albumin 4.1 Globulin 3.8 Albumin/Globulin Ratio 1.1 Lipase 211 Urine Color Yellow Urine Appearance Slight-cloudy Urine pH 6.0 Ur Specific [place] 1.010 Urine Protein Negative Urine Glucose (UA) Negative Urine Ketones Trace H Urine Blood Negative Urine Nitrate Positive H Urine Bilirubin Negative Urine Urobilinogen 0.2 Ur Leukocyte Esterase Small H Urine RBC Negative Urine WBC 2 - 5 Ur Epithelial Cells 1 - 3 Urine Bacteria Mod Blood Type Antibody Screen BBK History Checked 12/30/17 12/30/17 12/30/17 09:30 09:30 09:30 WBC 7.3 RBC 4.10 Hgb 13.0 Hct 40.2 MCV 98.0 MCH 31.7 MCHC 32.3 RDW 14.0 Plt Count 196 MPV 10.0 Gran % 64.4 Lymph % (Auto) 27.9 [place] % (Auto) 5.4 Eos % (Auto) 2.2 Baso % (Auto) 0.1 Gran # 4.69 Lymph # (Auto) 2.0 [place] # (Auto) 0.4 Eos # (Auto) 0.2 Baso # (Auto) 0.01 Sodium 137 Potassium 3.9 Chloride 105 Carbon Dioxide 25 Anion Gap 11 BUN 20 Creatinine 1.0 Est GFR ( Amer) > 60 Est GFR (Non-Af Amer) 55 Random Glucose 136 H Calcium 10.0 Phosphorus 2.5 Magnesium 2.0 Total Bilirubin 0.6 AST 18 ALT 21 Alkaline Phosphatase 66 Total Protein 7.1 Albumin 3.6 Globulin 3.5 Albumin/Globulin Ratio 1.0 L Lipase Urine Color Urine Appearance Urine pH Ur Specific [place] Urine Protein Urine Glucose (UA) Urine Ketones Urine Blood Urine Nitrate Urine Bilirubin Urine Urobilinogen Ur Leukocyte Esterase Urine RBC Urine WBC Ur Epithelial Cells Urine Bacteria Blood Type B POSITIVE Antibody Screen Negative BBK History Checked No verified bt Assessment & Plan - Assessment and Plan (Free Text) Assessment: A 72 year old retired, female who came in to the ER due to diffuse abdominal pain radiating to chest and back for the past 3 days prior to admission. She also complaints of generalized weakness and fatigue. History of hypertension,non obstructing coronary artery disease, hypothyroidism, fibromyalgia, ventral hernia, uterine cancer post resection, irritable bowel syndrome. Patient denies chest pain,denies shortness of breath. 12 lead EKG showed NSR, no ischemia. Ct of abdomen showed anterior abdominal wall hernia containing portions of the transverse colon, incarcerated hernia with obstruction. For possible hernia repair. Patient cleared for surgery from cardiac standpoint with moderate risk considering co- morbidities. No evidence of ischemia or heart failure. No absolute contraindication for hernia surgery. Review of previous cardiac work up: 08/16/15- Cardiac catheterization done due to abnormal stress test Very distal LAD thread like 55% stenosis but non flow obstructing LVEF 55-60% 07/22/15- Stress test done- Abnormal, mid anteroseptal defect suspicious of ischemia 12/27/13- Echo done-Normal LV size, LVEF 60-65% Trace AR/MR Mild Tricuspid regurgitation, RVSP 39 mmHg No evidence of vegetation Plan: For possible hernia repair Patient cleared for surgery from cardiac standpoint Moderate risk considering co- morbidities EKG- normal sinus rhythm Denies chest pain, denies shortness of breath Heart rate controlled Blood pressure controlled Continue IV for hydration Continue antibiotics as ordered (UTI) On Pepcid 40 mg every 12 hours,Microzide 12.5 mg daily Synthroid 125 mcg daily Continue current treatment Continue current medications Chart reviewed Will follow up postoperatively Plan and treatment discussed with Thank you Dr. Melton for the opportunity of taking care of Ms. Micaela Fontana - Date & Time Date: 12/30/17 Time: 07:10
--- NOTE | 2017-12-30 12:31 | CARD ---
APPROVED REPORT Date of service: 12/29/2017 EKG Measurement Heart [id number] <Conclusion> Normal sinus rhythm Normal ECG
[2017-12-30] MEDS: Sodium Chloride 0.9% 1,000 ML IV SCH (15:30)
[2017-12-31] MEDS: Levothyroxine 125 MCG TAB PO SCH (05:31)
[2017-12-31] MEDS: Sodium Chloride 0.9% 1,000 ML IV SCH ×2 (05:32→18:01)
--- NOTE | 2017-12-31 06:19 | HP ---
date The patient is a 72-year-old female. CHIEF COMPLAINT: Abdominal pain. HISTORY OF PRESENT ILLNESS: This is my private patient, a 72-year-old female with past medical history of abdominal abscess, irritable bowel syndrome, recurrent incisional hernia and hypertension, came to the emergency room complaining of abdominal pain for 3 days, describes the pain as diffuse, burning, intermittent, pain is like on a scale of 8 out of 10 without radiation to the chest or back, associated anorexia and feeling of generalized weakness and fatigue. The patient is already taking p.o. intake, but does not feel hungry. She has not taken any medications for pain, states that this pain is different from her typical irritable bowel syndrome pain and not relieved by defecation. Denies fevers, chills, chest pain, palpitations, syncope, nausea, vomiting, diarrhea, constipation, hematuria, hematochezia, vaginal discharge or bleeding or back pain. PAST MEDICAL HISTORY: As above, hypertension, bronchitis, cataract, hypothyroidism, diverticulitis, left kidney abnormalities, small but no intervention. FAMILY HISTORY: Father and mother, noncontributory. HABITS: Never smoked. No drugs, no ethanol. ALLERGIES: THE PATIENT IS NOT ALLERGIC TO ANY MEDICATIONS. HOME MEDICATIONS: Hydrochlorothiazide, Ecotrin, iron, Synthroid and Zantac. REVIEW OF SYSTEMS: The patient was seen and examined on the bedside, on 12/30/2017, looking comfortable. No nausea, vomiting, or diarrhea. No hematuria, no hematochezia. No swelling of the legs. No chest pain, no palpitation, but complaining about abdominal pain. No headache or dizziness, no focal weakness. No gait changes or speech changes. No diaphoresis. PHYSICAL EXAMINATION VITAL SIGNS: Temperature 98, pulse 79, respirations 18, blood pressure 120/84, pulse oximetry 96. HEENT: Head normocephalic, atraumatic. Eyes PERRLA. Extraocular muscles intact. Conjunctivae clear. Nose patent. NECK: Supple. No carotid bruits, JVD or thyromegaly. CHEST: Bilaterally symmetric. HEART: S1 and S2, positive. LUNGS: Clear to auscultation. ABDOMEN: Soft, has big ventral hernia. Bowel sounds positive. EXTREMITIES: No edema, no cyanosis. NEUROLOGIC: The patient is awake, alert, follows simple commands. LABORATORY DATA: White blood cells 7.3, hemoglobin 13.0, hematocrit 40.2, platelets 196,000. Sodium 137, potassium 3.9, BUN 20, creatinine 1.0, glucose 136. ASSESSMENT AND PLAN: Ms. Marizol Hinojosa is a 72-year-old lady with hyperglycemia, ketonuria, urinary tract infection, seen by the surgeon, underwent CAT scan of the abdomen and pelvis that showed anterior abdominal wall hernia containing a portion of the transverse colon, inflammatory changes, thickening of the wall of the colon. The site of the hernia indicates incarceration with proximal obstruction. History of hysterectomy, left kidney atrophic with angiomyolipoma. Discussion done with Dr. Elijah Burch. Seen by the pediatric critical care nurse. The patient has history of hypertension, hypothyroidism, fibromyalgia, multiple abdominal wall surgeries, two longstanding vertebral hernias, one containing stomach and the other containing gallbladder. They usually go back when she lies down and bulge out when she is sitting up, so the patient has incarcerated ventral hernia, n.p.o. after midnight. OR in a.m. as per Dr. Burch. Gastrointestinal and deep venous thrombosis prophylaxis, history of hysterectomy, ventral hernia, abdominal abscess. Repeat labs. We will follow up. Jade Melton MD MTDD
--- NOTE | 2017-12-31 06:36 | CP.PCM.PN ---
Subjective - Date & Time of Evaluation Date of Evaluation: 12/31/17 Time of Evaluation: 06:20 - Subjective Subjective: No distress, Awake, alert Reason for consultation and follow up: Cardiac evaluation for pre-op ventral hernia surgery,risk stratification and cardiac clearance. History of hypertension, hypothyroidism, fibromyalgia, ventral hernia, uterine cancer post resection, irritable bowel syndrome. Seen and examined by me and Dr. George Objective - Vital Signs/Intake and Output Vital Signs (last 24 hours): Temp Pulse Resp BP Pulse Ox 97.5 F L 65 20 107/57 L 95 12/30/17 22:45 12/30/17 22:45 12/30/17 22:45 12/30/17 22:45 12/30/17 22:45 Intake and Output: 12/30/17 12/31/17 18:59 06:59 Intake Total 580 540 Balance 580 540 - Medications Medications: Current Medications Docusate Sodium (Colace) 100 mg PO BID [facility] Last Admin: 12/30/17 17:17 Dose: 100 mg Famotidine (Pepcid) 40 mg PO Q12 [facility] Last Admin: 12/30/17 22:03 Dose: 40 mg Ferrous Sulfate (Feosol) 324 mg PO DAILY [facility] Last Admin: 12/30/17 09:11 Dose: 324 mg Hydrochlorothiazide (Microzide) 12.5 mg PO DAILY [facility] Last Admin: 12/30/17 09:11 Dose: 12.5 mg Sodium Chloride (Sodium Chloride 0.9%) 1,000 mls @ 75 mls/hr IV .[id number] [facility] Last Admin: 12/31/17 05:32 Dose: 75 mls/hr Levothyroxine Sodium (Synthroid) 125 mcg PO 0600 [facility] Last Admin: 12/31/17 05:31 Dose: 125 mcg Oxycodone/Acetaminophen (Percocet 5/325 Mg Tab) 1 tab PO Q4H PRN PRN Reason: Pain, moderate (4-7) Stop: 01/02/18 00:19 Last Admin: 12/30/17 06:22 Dose: 1 tab - Labs Labs: 12/30/17 09:30 12/30/17 09:30 - Constitutional Appears: Non-toxic, No Acute Distress - Head Exam Head Exam: NORMAL INSPECTION, NORMOCEPHALIC - Eye Exam Eye Exam: Normal appearance Pupil Exam: NORMAL ACCOMODATION - ENT Exam ENT Exam: Mucous Membranes Dry, Normal Exam - Respiratory Exam Respiratory Exam: Clear to Ausculation Bilateral, NORMAL BREATHING PATTERN - Cardiovascular Exam Cardiovascular Exam: +S1, +S2 - GI/Abdominal Exam GI & Abdominal Exam: Guarding, Diminished Bowel Sounds - Extremities Exam Extremities Exam: Full ROM, Normal Capillary Refill - Neurological Exam Neurological Exam: Alert, Awake, Oriented x3 - Psychiatric Exam Psychiatric exam: Normal Affect, Normal Mood - Skin Skin Exam: Dry, Normal Color, Warm Assessment and Plan - Assessment and Plan (Free Text) Assessment: A 72 year old retired, female who came in to the ER due to diffuse abdominal pain radiating to chest and back for the past 3 days prior to admission. She also complaints of generalized weakness and fatigue. History of hypertension,non obstructing coronary artery disease, hypothyroidism, fibromyalgia, ventral hernia, uterine cancer post resection, irritable bowel syndrome. Patient denies chest pain,denies shortness of breath. 12 lead EKG showed NSR, no ischemia. Ct of abdomen showed anterior abdominal wall hernia containing portions of the transverse colon, incarcerated hernia with obstruction. For possible hernia rep air. Patient cleared for surgery from cardiac standpoint with moderate risk considering co- morbidities. No evidence of ischemia or heart failure. No absolute contraindication for hernia surgery. Review of previous cardiac work up: 08/16/15- Cardiac catheterization done due to abnormal stress test Very distal LAD thread like 55% stenosis but non flow obstructing LVEF 55-60% 07/22/15- Stress test done- Abnormal, mid anteroseptal defect suspicious of ischemia 12/27/13- Echo done-Normal LV size, LVEF 60-65% Trace AR/MR Mild Tricuspid regurgitation, RVSP 39 mmHg No evidence of vegetation Plan: For small bowel series today For possible ventral hernia repair Patient cleared for surgery from cardiac standpoint Moderate risk considering co- morbidities Denies chest pain, denies shortness of breath Heart rate controlled Blood pressure controlled Continue IV for hydration Continue antibiotics as ordered (UTI) On Pepcid 40 mg every 12 hours,Microzide 12.5 mg daily Synthroid 125 mcg daily Continue current treatment Continue current medications Chart reviewed Will follow up Plan and treatment discussed with Dr. George
[2017-12-31 07:03] LABS: TOTAL IRON BINDING CAPACITY 287 ug/dL (265-497)
[2017-12-31 07:04] LABS: BASO # 0.02 K/mm3 (0.0-2.0); BASO % 0.3 % (0.0-3.0); EOS # 0.2 (0.0-0.7); EOS % 3.6 % (1.5-5.0); GRAN # 3.51 (1.4-6.5); GRAN % 59.7 % (50.0-68.0); HEMOGLOBIN 13.9 g/dL (12.0-16.0); LYMPH # 1.7 (1.2-3.4); LYMPH % 28.6 % (22.0-35.0); MEAN CELL VOLUME 98.6 fl (80.0-105.0); MEAN CORPUSCULAR HEMOGLOBIN 31.6 pg (25.0-35.0); MEAN PLATELET VOLUME 10.8 fl (7.0-11.0); MONO # 0.5 (0.1-0.6); MONO % 7.8 % (1.0-6.0); RBC 4.4 10^6/uL (3.5-6.1); WHITE BLOOD COUNT 5.9 10^3/ul (4.5-11.0)
[2017-12-31 07:16] LABS: % IRON SATURATION 21 % (20-55); ALB/GLOB RATIO 1.1 (1.1-1.8); ALBUMIN 3.9 g/dL (3.0-4.8); CALCIUM 10.3 mg/dL (8.4-10.5); IRON 60 ug/dL (45-180)
[2017-12-31 07:21] LABS: INR 1.06; PROTHROMBIN TIME 12.2 SECONDS (9.4-12.5)
--- NOTE | 2017-12-31 07:45 | CP.PCM.PCO ---
Physician Communication Note - Physician Communication Note Physician Communication Note: Mult SBO [id number] today/OR if pt agreeable
[2017-12-31 07:54] LABS: PARTIAL THROMBOPLASTIN TIME 20.1 Seconds (25.1-36.5)
--- NOTE | 2017-12-31 09:52 | CON ---
DATE: 12/30/2017 HISTORY OF PRESENT ILLNESS: The patient is a 72-year-old female who admitted due to abdominal pain radiating to the back, past 3 days prior to admission. The patient states the pain gets worse when she sit up or stand and she also has a large mass in the abdomen, which was told to be hernia. The patient is known to have also irritable bowel syndrome; history of hypothyroidism; fibromyalgia; uterine cancer, post resection; GI reflux disease; gout. The patient denies any chest pain, shortness of breath on exertion. The patient had a stress test on 07/22/2015, which was abnormal for which she had cardiac catheterization on 08/16/2015, which showed normal LV function, normal ejection fraction of 55-60%. In the coronary, only LAD at very distal end showed 55% narrowing, a thread-like artery and rest of the arteries did not show any blockage, so this was nonobstructive coronary artery disease. The patient was told to take off the risk factors and lose weight. EKG shows normal sinus rhythm. Abdominopelvic CT scan showed anterior abdominal wall hernia containing portions of the transverse colon, inflammatory changes, thickening of the wall of the colon and the site of hernia indicates incarceration with proximal obstruction. The patient's blood pressure is 120/74, respirations 20, pulse 62, temperature 98.5. Lungs clear. Cardiovascular: S1, S2. IMPRESSION: The patient has abdominal hernia with incarceration, hypertension, hypothyroidism, history of irritable bowel, gout, fibromyalgia, gastrointestinal reflux disease. PLAN: Clinically, the patient's cardiac status is stable. She has no signs or symptoms of any angina and as mentioned before, the patient had cardiac catheterization on 08/16/2015, which failed to show any significant obstruction with normal LV ejection fraction of 55-60%. So, from cardiac point of view, the patient can go for ventral hernia abdominal hernia surgery as a moderate risk. The patient is already on hydrochlorothiazide 12.5 daily, Pepcid 40 mg p.o. every 12 hours, levothyroxine 125 mcg p.o. daily. Potassium yesterday was 3.5, today is 3.9. Repeat metabolic panel, magnesium and phosphorus have been ordered already for tomorrow morning. We will add TSH to the blood work for tomorrow and we will follow with you. Rick Guevara MD [facility] # [id number]
--- NOTE | 2017-12-31 10:29 | CP.PCM.PN ---
Subjective - Date & Time of Evaluation Date of Evaluation: 12/31/17 Time of Evaluation: 10:26 - Subjective Subjective: Surgery: Dr. Burch Patient reports feeling better today. Still with mild pain at the site of hernia. She denies n/v/f/c. She reports last bowel movement yesterday which was normal. Denies flatus. Objective - Vital Signs/Intake and Output Vital Signs (last 24 hours): Temp Pulse Resp BP Pulse Ox 98 F 61 18 120/80 99 12/31/17 06:00 12/31/17 06:00 12/31/17 06:00 12/31/17 06:00 12/31/17 06:00 Intake and Output: 12/31/17 12/31/17 06:59 18:59 Intake Total 540 Balance 540 - Medications Medications: Current Medications Docusate Sodium (Colace) 100 mg PO BID [facility] Last Admin: 12/31/17 09:09 Dose: 100 mg Famotidine (Pepcid) 40 mg PO Q12 [facility] Last Admin: 12/31/17 09:10 Dose: 40 mg Ferrous Sulfate (Feosol) 324 mg PO DAILY [facility] Last Admin: 12/31/17 09:10 Dose: 324 mg Hydrochlorothiazide (Microzide) 12.5 mg PO DAILY [facility] Last Admin: 12/31/17 09:10 Dose: 12.5 mg Sodium Chloride (Sodium Chloride 0.9%) 1,000 mls @ 75 mls/hr IV .[id number] [facility] Last Admin: 12/31/17 05:32 Dose: 75 mls/hr Levothyroxine Sodium (Synthroid) 125 mcg PO 0600 [facility] Last Admin: 12/31/17 05:31 Dose: 125 mcg Oxycodone/Acetaminophen (Percocet 5/325 Mg Tab) 1 tab PO Q4H PRN PRN Reason: Pain, moderate (4-7) Stop: 01/02/18 00:19 Last Admin: 12/30/17 06:22 Dose: 1 tab - Labs Labs: 12/31/17 06:15 12/31/17 06:15 PT 12.2 SECONDS (9.4-12.5) 12/31/17 06:15 INR 1.06 12/31/17 06:15 APTT 20.1 Seconds (25.1-36.5) L 12/31/17 06:15 - Constitutional Appears: Non-toxic, No Acute Distress - Head Exam Head Exam: ATRAUMATIC, NORMOCEPHALIC - Eye Exam Eye Exam: EOMI, Normal appearance - ENT Exam ENT Exam: Mucous Membranes Moist - Respiratory Exam Respiratory Exam: NORMAL BREATHING PATTERN. absent: Respiratory Distress - Cardiovascular Exam Cardiovascular Exam: REGULAR RHYTHM. absent: Tachycardia - GI/Abdominal Exam GI & Abdominal Exam: Soft, Tenderness (mid abdomen at site of hernia, bowel palpable in hernia w/ retained stool within hernia. ), Hernia. absent: Guarding, Rigid, Rebound Additional comments: no overlying skin changes - Neurological Exam Neurological Exam: Alert, Awake, Oriented x3 Assessment and Plan - Assessment and Plan (Free Text) Assessment: 72 y/o F w/ ventral hernia Plan: -f/u SBS, upper GI -OR for hernia repair if patient agreeable -NPO -IVFs -further recs per Dr. Kodi Portillo PGY4
[2017-12-31] MEDS: Oxycodone/Acetaminophen 5/325 mg Tab PO PRN (11:05)
[2017-12-31] MEDS ORDERED: Magnesium Citrate Oral SOL (300 ml) PO ONE (11:28)
[2017-12-31] MEDS ORDERED: Potassium Chloride 20 mEq ER Tab PO ONE (11:58)
--- NOTE | 2017-12-31 11:59 | RAD ---
Date of service: 12/31/2017 HISTORY: Ventral hernia. COMPARISON: 12/29/2017. CT abdomen and pelvis. FINDINGS: BOWEL: No evidence of obstruction or free air. Right hemicolon is distended relative to the left. Contrast from recent CT scan . BONES: Scoliosis, secondary degenerative change at multiple levels. OTHER FINDINGS: None. IMPRESSION: Dilated right shannon colon similar findings identified but better visualized on recent CT
[2017-12-31 12:59] LABS: FOLATE 6.1 ng/mL
--- NOTE | 2017-12-31 15:53 | PN ---
DATE: 12/31/2017 REASON FOR THE CONSULTATION AND FOLLOWUP: Cardiac evaluation for preop ventral hernia surgery, risk stratification. Patient denies any chest pain, shortness of breath or any palpitation. OBJECTIVE: GENERAL: Not in any apparent distress. This note is in addition to dictated by nurse practitioner, Jessie Lomeli. In summary, this is a 72-year-old obese female with past medical history significant for ventral hernia for preop evaluation and risk stratification, history of fibromyalgia, history of ventral hernia, history of hypothyroidism, history of hypertension, obesity, history of irritable bowel syndrome. Patient had cardiac workup status post cardiac catheterization in 08/16/2015, abnormal stress test, very distal LAD, diffusely diseased. No flow limiting obstruction after having the abnormal stress test. Patient had echo on 12/27/2013 that shows a normal LV function, ejection fraction 50-55%, trace TR, no evidence of vegetation. Patient is cleared from the Cardiology point of view to go for surgery with moderate risk secondary to underlying comorbidity. We will follow with you. Patient is cleared as mentioned with moderate risk secondary to underlying comorbidity, but no contraindication. Patient has a baseline bradycardia, so we will not give beta-may. We will follow the blood workup. We will supplement potassium. Thank you, Dr. Melton, for providing us the opportunity in taking care of the patient, Micaela Fontana. Rick Geogre MD
--- NOTE | 2018-01-01 02:35 | PN ---
DATE: 12/31/2017 SUBJECTIVE: The patient was seen and examined on the bedside on 12/31/2017. Looking comfortable. No nausea, vomiting, or diarrhea. No hematuria or hematochezia. No swelling of the legs. No chest pain. No palpitation. No fever. No chills. Abdominal pain is better, but still there. Surgeon, Dr. Burch is on the case. PHYSICAL EXAMINATION: VITAL SIGNS: Temperature 98, pulse 61, respiratory rate 18, blood pressure 120/80, pulse oximetry 99. HEENT: Head normocephalic, atraumatic. Eyes; PERRLA. Extraocular muscles intact. Conjunctivae clear. Nose patent. Mucous membrane moist. NECK: Supple. No carotid bruit. No JVD or thyromegaly. CHEST: Bilaterally symmetrical. HEART: S1 and S2 positive. LUNGS: Clear to auscultation. ABDOMEN: Soft. Bowel sounds positive. No organomegaly. EXTREMITIES: No edema. No cyanosis. NEUROLOGICAL: The patient is awake and alert. Moving all 4 extremities. No focal deficits. MEDICATIONS: Colace, Pepcid, Feosol, Microzide, sodium chloride, levothyroxine, oxycodone. LABORATORY DATA: White blood cells 5.9, hemoglobin 13.9, hematocrit 43.4, platelets 161. Sodium 139, potassium 3.8, BUN 16, creatinine 1.1, glucose 94. ASSESSMENT AND PLAN: Ms. Micaela Fontana, a 72-year-old lady with multiple medical problems, has ventral abdominal wall hernia. Small bowel series done, upper gastrointestinal done. OR for hernia repair if the patient is agreeable. N.p.o., IV fluids. The patient was seen by the Cardiology also, Dr. George. She has a history of fibromyalgia, hypothyroidism, hypertension, irritable bowel syndrome. The patient has cardiac catheterization done on 08/16/2015 due to abnormal stress test. The patient has baseline bradycardia, so according to box turner, no beta blockers. The box turner cleared the patient with moderate risk secondary to underlying morbidity, but not contraindicated. Small bowel series are done, results are pending. Abdominal x-ray was done. Has dilated right hemicolon, similar findings identified, but better visualized this on recent CT. Gastrointestinal and deep venous thrombosis prophylaxes. Repeat labs. Jade Melton MD [facility] # [id number]
[2018-01-01] MEDS: Oxycodone/Acetaminophen 5/325 mg Tab PO PRN ×2 (05:08→20:01)
[2018-01-01] MEDS: Levothyroxine 125 MCG TAB PO SCH (05:08)
[2018-01-01] MEDS: Sodium Chloride 0.9% 1,000 ML IV SCH (06:48)
--- NOTE | 2018-01-01 06:58 | CP.PCM.PN ---
Subjective - Date & Time of Evaluation Date of Evaluation: 01/01/18 Time of Evaluation: 06:25 - Subjective Subjective: Awake, alert,No distress, denies nausea,denies vomiting Reason for consultation and follow up: Cardiac evaluation for pre-op ventral he rnia surgery,risk stratification and cardiac clearance. History of hypertension, hypothyroidism, fibromyalgia, ventral hernia, uterine cancer post resection, irritable bowel syndrome. Seen and examined by me and Dr. George Objective - Vital Signs/Intake and Output Vital Signs (last 24 hours): Temp Pulse Resp BP Pulse Ox 97.9 F 58 L 18 99/59 L 98 12/31/17 22:52 12/31/17 22:52 12/31/17 22:52 12/31/17 22:52 12/31/17 22:52 - Medications Medications: Current Medications Docusate Sodium (Colace) 100 mg PO BID [facility] Last Admin: 12/31/17 17:59 Dose: 100 mg Famotidine (Pepcid) 40 mg PO Q12 [facility] Last Admin: 12/31/17 21:44 Dose: 40 mg Ferrous Sulfate (Feosol) 324 mg PO DAILY [facility] Last Admin: 12/31/17 09:10 Dose: 324 mg Hydrochlorothiazide (Microzide) 12.5 mg PO DAILY [facility] Last Admin: 12/31/17 09:10 Dose: 12.5 mg Sodium Chloride (Sodium Chloride 0.9%) 1,000 mls @ 75 mls/hr IV .[id number] [facility] Last Admin: 01/01/18 06:48 Dose: 75 mls/hr Ceftriaxone Sodium (Rocephin 1 Gram Ivpb) 1 gm in 100 mls @ 100 mls/hr IVPB DAILY [facility]; Protocol Levothyroxine Sodium (Synthroid) 125 mcg PO 0600 [facility] Last Admin: 01/01/18 05:08 Dose: 125 mcg Oxycodone/Acetaminophen (Percocet 5/325 Mg Tab) 1 tab PO Q4H PRN PRN Reason: Pain, moderate (4-7) Stop: 01/02/18 00:19 Last Admin: 01/01/18 05:08 Dose: 1 tab - Labs Labs: 12/31/17 06:15 12/31/17 06:15 PT 12.2 SECONDS (9.4-12.5) 10/22/18 06:15 INR 1.06 12/31/17 06:15 APTT 20.1 Seconds (25.1-36.5) L 12/31/17 06:15 - Constitutional Appears: Non-toxic, No Acute Distress - Head Exam Head Exam: NORMAL INSPECTION, NORMOCEPHALIC - Eye Exam Eye Exam: Normal appearance Pupil Exam: NORMAL ACCOMODATION - ENT Exam ENT Exam: Mucous Membranes Dry, Mucous Membranes Moist, Normal Exam - Neck Exam Neck Exam: Full ROM, Normal Inspection - Respiratory Exam Respiratory Exam: Clear to Ausculation Bilateral, NORMAL BREATHING PATTERN - Cardiovascular Exam Cardiovascular Exam: +S1, +S2 - GI/Abdominal Exam GI & Abdominal Exam: Soft, Diminished Bowel Sounds - Extremities Exam Extremities Exam: Full ROM, Normal Capillary Refill - Neurological Exam Neurological Exam: Alert, Awake, Oriented x3 - Psychiatric Exam Psychiatric exam: Normal Affect, Normal Mood - Skin Skin Exam: Dry, Normal Color, Warm Assessment and Plan - Assessment and Plan (Free Text) Assessment: A 72 year old retired, female who came in to the ER due to diffuse abdominal pain radiating to chest and back for the past 3 days prior to admission. She also complaints of generalized weakness and fatigue. History of hypertension,non obstructing coronary artery disease, hypothyroidism, fibromyalgia, ventral hernia, uterine cancer post resection, irritable bowel syndrome. Patient denies chest pain,denies shortness of breath. 12 lead EKG showed NSR, no ischemia. Ct of abdomen showed anterior abdominal wall hernia containing portions of the transverse colon, incarcerated hernia with obstruction. For possible hernia repair. Patient cleared for surgery from cardiac standpoint with moderate risk considering co- morbidities. No evidence of ischemia or heart failure. No absolute contraindication for hernia surgery. Review of previous cardiac work up: 08/16/15- Cardiac catheterization done due to abnormal stress test Very distal LAD thread like 55% stenosis but non flow obstructing LVEF 55-60% 07/22/15- Stress test done- Abnormal, mid anteroseptal defect suspicious of ischemia 12/27/13- Echo done-Normal LV size, LVEF 60-65% Trace AR/MR Mild Tricuspid regurgitation, RVSP 39 mmHg No evidence of vegetation Plan: Still for small bowel series possibly today (Too soon to give another contrast yesterday as she just had recent CT of abdomen with contrast) For possible ventral hernia repair as soon as work up is done Patient cleared for surgery from cardiac standpoint Moderate risk considering co- morbidities Denies chest pain, denies shortness of breath Heart rate controlled Blood pressure controlled Continue IV for hydration Continue antibiotics as ordered (UTI) Initial Urine culture positive for gram negative rods On Pepcid 40 mg every 12 hours,Microzide 12.5 mg daily Synthroid 125 mcg daily Continue current treatment Continue current medications Chart reviewed Will follow up Plan and treatment discussed with Dr. George
[2018-01-01 07:30] LABS: BASO # 0.01 K/mm3 (0.0-2.0); BASO % 0.2 % (0.0-3.0); EOS # 0.2 (0.0-0.7); EOS % 3.9 % (1.5-5.0); GRAN # 2.94 (1.4-6.5); GRAN % 55.1 % (50.0-68.0); LYMPH # 1.6 (1.2-3.4); LYMPH % 29.2 % (22.0-35.0); MEAN CELL VOLUME 98.8 fl (80.0-105.0); MEAN CORPUSCULAR HEMOGLOBIN 31.7 pg (25.0-35.0); MEAN CORPUSCULAR HGB CONC 32.1 g/dl (31.0-37.0); MEAN PLATELET VOLUME 9.9 fl (7.0-11.0); MONO # 0.6 (0.1-0.6); MONO % 11.6 % (1.0-6.0); RBC 4.1 10^6/uL (3.5-6.1); WHITE BLOOD COUNT 5.3 10^3/ul (4.5-11.0)
--- NOTE | 2018-01-01 08:31 | CP.PCM.PN ---
Subjective - Date & Time of Evaluation Date of Evaluation: 01/01/18 Time of Evaluation: 08:27 - Subjective Subjective: Nish Leonard, PGY-1, Surgery Progress Note for Dr. Burch Patient seen and examined at bedside. Patient had no overnight events. Patient today reports improved abdominal pain and had bowel movement yesterday after being administered magnesium citrate. Patient denies chest pain, shortness of breath, fever, nausea, vomiting, dysuria, hematuria. 12-point ROS is negative except for what was mentioned above. Objective - Vital Signs/Intake and Output Vital Signs (last 24 hours): Temp Pulse Resp BP Pulse Ox 97.9 F 58 L 18 99/59 L 98 12/31/17 22:52 12/31/17 22:52 12/31/17 22:52 12/31/17 22:52 12/31/17 22:52 Intake and Output: 01/01/18 01/01/18 06:59 18:59 Intake Total 960 Balance 960 - Medications Medications: Current Medications Docusate Sodium (Colace) 100 mg PO BID [facility] Last Admin: 12/31/17 17:59 Dose: 100 mg Famotidine (Pepcid) 40 mg PO Q12 [facility] Last Admin: 12/31/17 21:44 Dose: 40 mg Ferrous Sulfate (Feosol) 324 mg PO DAILY [facility] Last Admin: 12/31/17 09:10 Dose: 324 mg Hydrochlorothiazide (Microzide) 12.5 mg PO DAILY [facility] Last Admin: 12/31/17 09:10 Dose: 12.5 mg Sodium Chloride (Sodium Chloride 0.9%) 1,000 mls @ 75 mls/hr IV .[id number] [facility] Last Admin: 01/01/18 06:48 Dose: 75 mls/hr Ceftriaxone Sodium (Rocephin 1 Gram Ivpb) 1 gm in 100 mls @ 100 mls/hr IVPB DAILY [facility]; Protocol Levothyroxine Sodium (Synthroid) 125 mcg PO 0600 [facility] Last Admin: 01/01/18 05:08 Dose: 125 mcg Oxycodone/Acetaminophen (Percocet 5/325 Mg Tab) 1 tab PO Q4H PRN PRN Reason: Pain, moderate (4-7) Stop: 01/02/18 00:19 Last Admin: 01/01/18 05:08 Dose: 1 tab - Labs Labs: 01/01/18 07:00 12/31/17 06:15 PT 12.2 SECONDS (9.4-12.5) 12/31/17 06:15 INR 1.06 12/31/17 06:15 APTT 20.1 Seconds (25.1-36.5) L 12/31/17 06:15 - Constitutional Appears: Well, Non-toxic, No Acute Distress - Head Exam Head Exam: ATRAUMATIC, NORMAL INSPECTION, NORMOCEPHALIC - Eye Exam Eye Exam: EOMI, PERRL - ENT Exam ENT Exam: Mucous Membranes Moist - Respiratory Exam Respiratory Exam: Clear to Ausculation Bilateral, NORMAL BREATHING PATTERN - Cardiovascular Exam Cardiovascular Exam: REGULAR RHYTHM, RRR - GI/Abdominal Exam GI & Abdominal Exam: Soft, Hernia (hernia is more reducible today). absent: Tenderness - Extremities Exam Extremities Exam: Full ROM - Neurological Exam Neurological Exam: Alert, Awake, CN II-XII Intact, Oriented x3 - Psychiatric Exam Psychiatric exam: Normal Affect, Normal Mood - Skin Skin Exam: Dry, Intact, Normal Color Assessment and Plan - Assessment and Plan (Free Text) Assessment: 72 year old female with past medical history of fibromyalgia, uterine cancer 2/p resection, IBS, and hypothyroidism presents with abdominal wall hernia with transverse colon in hernia. Patient's hernia is more reducible today. Plan: Patient was not able to have GI series yesterday because there was left over contrast present. Patient is currently on a liquid diet and will try GI series again today. Continue with IV fluids and ceftriaxone daily. Will discuss patient case with Dr. Burch.
[2018-01-01 08:33] LABS: ALBUMIN 3.6 g/dL (3.0-4.8); CALCIUM 10.3 mg/dL (8.4-10.5)
[2018-01-01] MEDS ORDERED: cefTRIAXone 1 gm 1 GM/100 ML BAG IVPB SCH (10:00)
--- NOTE | 2018-01-01 10:05 | CON ---
DATE: 12/31/2017 PULMONARY CONSULT REFERRING PHYSICIAN: Jade Melton MD REASON FOR CONSULT: Scheduled for hernia repair, history of bronchitis, may have sleep apnea syndrome. HISTORY OF PRESENT ILLNESS: This is a 72-year-old female with history of multiple abdominal issues including multiple laparotomies, has a history of abdominal abscess, hypertension, hypothyroid, comes in with ventral hernia with burning sensation and pain. Seen by GI and Surgery. CT of the abdomen suggested of thickening of the bowel with chronic inflammatory changes. She denied any cough or sputum production. Does not know if she snores, lives alone, but daytime sleepy and tired. No nausea. No leg pain or leg swelling. PAST MEDICAL HISTORY: As per history of present illness. ALLERGIES: NONE KNOWN. SOCIAL HISTORY: Nonsmoker, nondrinker. FAMILY HISTORY: No significant cardiopulmonary disease reported. MEDICATIONS: She is on Colace 100 mg twice a day, ferrous sulfate 324 mg daily, hydrochlorothiazide 12.5 mg daily, Pepcid 40 mg every 12 hours, Percocet 5/325 one tablet every 4 hours p.r.n., IV fluid normal saline 75 mL/hour, Synthroid 125 mcg daily. REVIEW OF SYSTEMS: No headache, no rhinitis. On and off mild cough, no chest pain. Has a ventral hernia discomfort with back pain. No dysuria or leg pain or leg swelling. PHYSICAL EXAMINATION: GENERAL: Lying in the bed, in no acute distress. VITAL SIGNS: Temperature is 98, heart rate 78, respiratory rate is 18, blood pressure 118/81, pulse ox 99% on room air. HEENT: Moist mucous membrane. Crowded airway. NECK: Supple. No JVD. LUNGS: Fair airflow with rhonchi. HEART: S1, S2. ABDOMEN: Has a ventral hernia, unable to reduce. It is tender to touch. EXTREMITIES: There is no edema. NEUROLOGIC: Awake and follows simple commands. LABORATORY DATA: Shows hemoglobin 13.9, hematocrit 43.4, WBC 5.9, platelet is 161. INR is 1.06, PTT 20. Sodium 139, potassium 3.8, chloride 106, bicarbonate 26, BUN 16, creatinine 1.1, glucose 94. Hemoglobin A1c 5.4. Calcium is 10.3, phosphorus 3, magnesium 1.9, iron is 60. AST 20, ALT 22, alk phos is 84. Albumin is 3.9. Triglyceride 106, cholesterol is 163, lipase is 211. Vitamin B12 is 643. Folate is 6.1. TSH is 8.09. Microbiology, urine culture has gram-negative diane. Has a CT of the abdomen and pelvis done, which showed anterior abdominal wall hernia containing portion of the transverse colon, inflammatory changes, thickening of the wall of the colon at the site of the hernia indicating incarceration with proximal obstruction. IMPRESSION AND PLAN: Incarcerated ventral hernia, history of hypothyroid, hypertension, obesity, irritable bowel syndrome, history of bronchitis, history of echocardiogram done few years ago with good LV function. Pulmonary point of view, she is doing good. We will suggest her close cardiopulmonary monitoring, sedated, maybe risk of sleep apnea. Pulmonary status is optimized. Gastric prophylaxis. We will start antibiotics for UTI. We will follow with you. Rick Sellers MD
--- NOTE | 2018-01-01 15:42 | PN ---
DATE: 01/01/2018 This note is in addition to dictated by our nurse practitioner. REASON FOR THE CONSULTATION: Cardiac evaluation for preop ventral hernia surgery, risk stratification. Denies any chest pain, shortness of breath, or any palpitation. SUBJECTIVE: Patient denies any chest pain. OBJECTIVE: GENERAL: Not in apparent distress. In summary, a 72-year-old female came to the ER with abdominal pain, has a large ventral hernia, history of cardiac catheterization in the past, nonobstructive coronary artery disease, hypothyroidism, fibromyalgia, uterine cancer in the past as well as resection, status post small bowel syndrome, atypical chest pain. Patient was cleared from Cardiology point of view. ventral hernia needs to be repaired because as mentioned, patient's previous cardiac workup including cardiac catheterization on 08/16/2015, followed by abnormal stress test is essentially within normal. Patient is baseline bradycardic, was not in beta-may. We will clear the patient to go for surgery with moderate risk because of underlying comorbidity including obesity, but no absolute contraindication. No evidence of ischemia, arrhythmia, or congestive heart failure. We will follow with you and we will sign off for now and glad to follow up p.r.n. Electrolytes are supplemented yesterday, now stable. We will sign off. Thank you, Dr. Melton, for providing us the opportunity in taking care of the patient, Micaela Fontana. Rick George MD
--- NOTE | 2018-01-01 22:22 | PN ---
DATE: 01/01/2018 PULMONARY PROGRESS NOTE REFERRING PHYSICIAN: Dr. Melton SUBJECTIVE: The patient is lying in the bed head at 45 degrees. Family is at bedside. Today's events noted. No headache, no rhinitis. No nausea. No chest pain. No dysuria, leg pain, or leg swelling. Has a mild hernia area pain. OBJECTIVE: GENERAL: In no acute distress. VITAL SIGNS: Temperature is 98, heart rate 68, respiratory rate is 20, blood pressure 105/64, pulse ox 97% on room air. HEENT: Moist mucous membranes. Crowded airway. NECK: Supple. No JVD. LUNGS: Have fair airflow with rhonchi. HEART: S1 and S2. ABDOMEN: Soft. Has a ventral hernia. EXTREMITIES: No edema. NEUROLOGIC: Awake and alert, follows simple command. MEDICATIONS: She is on Colace 100 mg twice a day, ferrous sulfate 324 mg daily, hydrochlorothiazide 12.5 mg daily, Pepcid 40 mg twice a day, Percocet 5/325 1 tab every 4 hours p.r.n., Rocephin 1 g IV daily, IV fluid normal saline 75 mL per hours, Synthroid 175 mcg daily. LABORATORY DATA: Shows hemoglobin 13, hematocrit 40.5, WBC 5.3, platelet count is 173. Sodium 141, potassium 4.2, chloride 109, bicarbonate 27, BUN 14, creatinine 1.1, glucose is 95, calcium is 10.3, magnesium is 2.3, AST 20, ALT 20, alk phos is 73. Albumin is 3.6. TSH is 8. Urinalysis shows wbc's 2-5. Urine culture has E. coli. IMPRESSION AND PLAN: Incarcerated ventral hernia, hypothyroid, hypertension, obesity, irritable bowel syndrome, history of bronchitis, urinary tract infection. Pulmonary point of view, doing well. Pulmonary status optimized for possible anesthesia. We will need close cardiopulmonary monitoring if sedated, sleep apnea precaution. Thank you and we will follow with you. Rick Sellers MD
[2018-01-01] MEDS ORDERED: Simethicone 80 mg Chewtab PO STA (23:30)
[2018-01-02] MEDS ORDERED: Oxycodone/Acetaminophen 5/325 mg Tab PO STA (06:20)
[2018-01-02] MEDS: Levothyroxine 125 MCG TAB PO SCH (06:35)
[2018-01-02 07:30] LABS: BASO # 0.03 K/mm3 (0.0-2.0); BASO % 0.5 % (0.0-3.0); EOS # 0.2 (0.0-0.7); EOS % 3.6 % (1.5-5.0); GRAN # 3.3 (1.4-6.5); LYMPH # 2.5 (1.2-3.4); LYMPH % 37.1 % (22.0-35.0); MEAN CORPUSCULAR HEMOGLOBIN 32.1 pg (25.0-35.0); MEAN CORPUSCULAR HGB CONC 32.1 g/dl (31.0-37.0); MEAN PLATELET VOLUME 10.2 fl (7.0-11.0); MONO # 0.6 (0.1-0.6); MONO % 8.8 % (1.0-6.0); RBC 4.36 10^6/uL (3.5-6.1); RED CELL DISTRIBUTION WIDTH 14.1 % (11.5-14.5); WHITE BLOOD COUNT 6.6 10^3/ul (4.5-11.0)
--- NOTE | 2018-01-02 07:42 | RAD ---
Date of service: 01/01/2018 PROCEDURE: UPPER GI SERIES WITH SMALL-BOWEL FOLLOW-THROUGH HISTORY: ventral hernia COMPARISON: Abdomen pelvis CT with contrast 12/29/2017. TECHNIQUE: An upper GI examination was performed using signal intensity contrast following preliminary abdomen radiograph, with small-bowel series subsequently following. Multiple spot fluoroscopic images have subsequently been submitted numerous overhead images. 4.2 min of fluoro time was utilized with a total radiation dose of 382.261 mGy. FINDINGS: Preliminary radiograph demonstrates gas distending ascending through mid transverse large-bowel with change in caliber at the mid transverse colon segment to partially collapsed large bowel partially filled with gas. Retained fecal material is again identified within a herniated segment of transverse colon seen in prior CT 12/29/2017. The esophagus is remarkable for smooth course and contour the proximal to mid segments but with development of tertiary contractions distally, likely related to a large hiatal hernia. Moderate residual contrast was noted in the esophagus following the final swallowing of oral contrast material with esophago-esophageal reflux appreciated. Mild gastroesophageal reflux was also encountered. No overt pattern of esophagitis at this time or other suspicious filling defect or contrast collections. Grossly normal appearing gastric folds of an identified with no suspicious mural thickening identified or other suspicious filling defect or contrast collection appreciated throughout the stomach. The duodenal bulb and sweep appear grossly unremarkable. Oral contrast transit through the small bowel occurred in a normal time frame in under 60 min. Evaluation of small-bowel reveals normal caliber overall remarkable in fold pattern throughout. No constricting or obstructing mass is seen throughout the small bowel head with normal overall normal density oral contrast material appreciated throughout. No evidence of tethering or small bowel obstruction. No flocculation or separation oral contrast material was encountered. Terminal ileum appears within normal limits, including under spot fluoroscopy. Note, bile imaging demonstrates oral contrast material opacifying ascending through mid transverse colon segments primarily with limited amount of oral contrast material extending into the left hemicolon. Overall pattern likely reflects relatively high-grade partial or intermittent mid large-bowel obstruction. No extravasation oral contrast material was encountered. IMPRESSION: 1. Large hiatal hernia. Moderate distal esophageal tertiary contractions occurred during swallowing. No definite pattern of esophagitis or esophageal constricting or obstructing lesion. Moderate esophago-esophageal and mild gastroesophageal reflux noted. 2. Other than large hiatal hernia, upper GI examination otherwise unremarkable. 3. Unremarkable small bowel series. 4. Note is made of partial or intermittent mid large-bowel obstruction.
[2018-01-02 07:47] LABS: ALB/GLOB RATIO 1.1 (1.1-1.8); ALBUMIN 4.2 g/dL (3.0-4.8); CALCIUM 10.6 mg/dL (8.4-10.5)
[2018-01-02] MEDS ORDERED: Propofol 10 mg/ml Inj (20 ML) ONE (10:09)
[2018-01-02] MEDS ORDERED: Midazolam 2 MG/2 ML VIAL ONE (10:09)
[2018-01-02] MEDS ORDERED: Rocuronium 10 mg/ml (5 ml) ONE ×2 (10:11→11:24)
[2018-01-02] MEDS ORDERED: Bupivacaine 0.5% 50 ML IJ ONE (10:12)
[2018-01-02] MEDS ORDERED: ePHEDrine 50 mg/ml Inj ONE (10:33)
[2018-01-02] MEDS ORDERED: Desflurane Inhalation Anesthetic Liq (240 ml) ONE (11:47)
[2018-01-02] MEDS ORDERED: Bupivacaine Liposomal Inj 20 ml ONE (12:03)
[2018-01-02] MEDS ORDERED: Oxychlorosene Topical 2 gm Packet TOP ONE (12:17)
[2018-01-02] MEDS ORDERED: Neostigmine Methylsulfate 3mg/3ml Syringe IV ONE (12:23)
[2018-01-02] MEDS ORDERED: Glycopyrrolate 0.2 mg/ml (2ml vial) ONE (12:24)
[2018-01-02] MEDS ORDERED: HYDROmorphone 0.5 mg/0.5 ml ISec IVP PRN ×3 (12:39→12:41)
--- NOTE | 2018-01-02 12:40 | PCM.SURG1 ---
Surgeon's Initial Post Op Note - Surgeon's Notes Surgeon: Dr. Burch Machine Bobbin Winder: Dr. Bhatt PGY3, Radhames MS4 Type of Anesthesia: General Endo Anesthesia Administered By: Dr. Hurt Pre-Operative Diagnosis: Ventral Hernia Operative Findings: See operative dictation Post-Operative Diagnosis: Incarcerated Ventral Operation Performed: Ventral Hernia Repair With Mesh Specimen/Specimens Removed: Hernia Sac Estimated Blood Loss: EBL {In ML}: 20 Blood Products Given: N/A Drains Used: Blas Post-Op Condition: Good Date of Surgery/Procedure: 01/02/18 Time of Surgery/Procedure: 12:40
[2018-01-02] MEDS ORDERED: Lactated Ringer's 1,000 ML IV SCH (12:45)
[2018-01-02] MEDS ORDERED: HYDROmorphone 0.5 mg/0.5 ml ISec ONE ×3 (12:46→13:44)
[2018-01-02] MEDS: Lactated Ringer's 1,000 ML IV SCH (13:40)
--- NOTE | 2018-01-02 13:54 | PN ---
DATE: 01/01/2018 SUBJECTIVE: The patient is 72 years old female. The patient was seen and examined on 01/01/2018. The patient's family was sitting at the bedside. The patient went for radiological testing. No headache, no fever, no chest pain, no nausea, no vomiting or diarrhea. Still having abdominal pain, comes and goes. PHYSICAL EXAMINATION GENERAL: Looking comfortable. VITAL SIGNS: Temperature 98, heart rate 60, respiratory rate 20, and blood pressure 105/64. HEENT: Head normocephalic, atraumatic. Eyes; PERRLA. Extraocular muscles intact. Conjunctivae clear. Nose patent. Mucous membrane moist. NECK: Supple. No carotid bruit. No JVD or thyromegaly. CHEST: Bilaterally symmetrical. HEART: S1 and S2 positive. LUNGS: Clear to auscultation. ABDOMEN: Soft, has ventral hernia. Bowel sounds are positive. EXTREMITIES: No edema. No cyanosis. NEUROLOGIC: The patient is awake, alert, follows simple commands. MEDICATIONS: Colace, ferrous sulfate, hydrochlorothiazide, Pepcid, Percocet, Rocephin, and Synthroid. LABORATORY DATA: Hemoglobin 13, hematocrit 40.5, white blood cells 5.3, and platelets 173. Sodium 141, potassium 4.2, BUN 14, creatinine 1.1, calcium 10.3, AST 20, ALT 20. ASSESSMENT AND PLAN: The patient is a 72-year-old lady with incarcerated ventral hernia, hypothyroidism, hypertension, obesity, irritable bowel syndrome, history of bronchitis, urinary tract infection, seen by the Political Science Research Assistant. According to him, pulmonary status optimized for possibly anesthesia. Need close monitoring of cardiopulmonary monitoring especially during sedation and sleep apnea precautions. Appreciated Cardiology and Pulmonary input for the clearing the patient. The patient went for gastrointestinal series; large hiatal hernia, moderate distal esophagus tertiary contractures occurs during swelling. No definite pattern of esophagitis, esophageal contraction, or obsessive lesions. Moderate esophago, esophageal and mild gastroesophageal reflux noted. Other than large hiatal hernia, upper gastrointestinal examination was unremarkable. Unremarkable small bowel series. Partial intermittent mid-large bowel obstruction. Gastrointestinal and deep venous thrombosis prophylaxis. Appreciated Dr. Terry's communication with me by the texting. We will follow up. Jade Melton MD [facility] # [id number] [place]
--- NOTE | 2018-01-02 15:58 | PN ---
DATE: 01/02/2018 PULMONARY PROGRESS NOTE REFERRING PHYSICIAN: Jade Melton MD. SUBJECTIVE: She just came back from OR status post hernia repair, sleepy, arousable. Feels better. No headache. No rhinitis. No chest pain. Abdominal pain is there. No leg pain. No leg swelling. OBJECTIVE: GENERAL: In no acute distress. VITAL SIGNS: Temperature is 98, heart rate is 61, respiratory rate is 18, blood pressure 154/85, pulse ox 99% on 3 L nasal cannula. HEENT: Moist mucous membrane. No ulcer or thrush noted. NECK: Supple. No JVD. LUNGS: Have a fair airflow with few rhonchi. HEART: S1 and S2. ABDOMEN: Soft to touch. No bowel sound. EXTREMITIES: There is no edema. NEUROLOGICAL: Sleepy, arousable. Follows simple command. MEDICATIONS: She is on Ancef 1 g IV every 8 hours, Colace 100 mg twice a day, Dilaudid is 0.5 mg every 4 hours p.r.n., also Dilaudid 0.5 mg every 15 minutes p.r.n. had been given, ferrous sulfate 324 mg daily, lactated Ringer is at 150 mL/hour, hydrochlorothiazide 12.5 mg daily, Pepcid 40 mg every 12 hours, Synthroid is 125 mcg daily. LABORATORY DATA: Shows hemoglobin 14, hematocrit 43.6, WBC 6.6, platelet count is 237. Sodium 142, potassium 3.9, chloride 105, bicarbonate 30, BUN 12, creatinine 1.1, glucose 102, calcium is 10.6, magnesium is 2.3, AST 25, ALT 19, alk phos is 87, albumin is 4.2. Urine has E. coli. IMPRESSION AND PLAN: Incarcerated ventral hernia, status post hernia repair; hypothyroid; hypertension; obesity; irritable bowel syndrome; bronchitis; may have sleep apnea syndrome; urinary tract infection. Pulmonary point of view, doing well. Continue antibiotics. Keep head at 45 degrees. Gastric prophylaxis. Deep venous thrombosis prophylaxis. Follow up labs in the morning. Surgical follow. Thank you and we will follow with you. Rick Sellers MD [facility] # [id number]
--- NOTE | 2018-01-02 16:37 | RAD ---
Date of service: 01/01/2018 HISTORY: Preop COMPARISON: 02/11/2014. FINDINGS: LUNGS: No active pulmonary disease. PLEURA: No significant pleural effusion identified, no pneumothorax apparent. CARDIOVASCULAR: No atherosclerotic calcification present Normal. OSSEOUS STRUCTURES: No significant abnormalities. VISUALIZED UPPER ABDOMEN: Normal. OTHER FINDINGS: Residual contrast in hiatal hernia. This appears to be secondary to an upper GI performed January 01, 2018. IMPRESSION: No active pulmonary disease. No significant interval change compared to the prior examination(s).
[2018-01-02] MEDS: ceFAZolin 1 gm in NS 1 GM/100 ML BAG IVPB SCH ×3 (17:18→21:36)
[2018-01-02] MEDS ORDERED: HYDROmorphone 0.5 mg/0.5 ml ISec IVP STA (18:52)
[2018-01-02] MEDS: HYDROmorphone 0.5 mg/0.5 ml ISec IVP PRN ×2 (20:30→23:24)
[2018-01-02] MEDS ORDERED: Lidocaine 5% Patch TD ONE (22:15)
--- NOTE | 2018-01-02 23:58 | PN ---
DATE: 01/02/2018 SUBJECTIVE: The patient was seen and examined on the bedside on 01/02/2018. Just came back from OR status post hernia repair. Feels better. No fever. No chills. No nausea, vomiting, diarrhea. Abdominal pain is there. Sleepy, arousable. PHYSICAL EXAMINATION: VITAL SIGNS: Temperature 98.6, heart rate 60, respiratory rate 20, blood pressure 150/80, pulse oximetry 99% on 3 L nasal cannula. HEENT: Head normocephalic, atraumatic. Eyes PERRLA. Extraocular muscles intact. Conjunctivae clear. Nose patent. Mucous membrane moist. NECK: Supple. No carotid bruit. No JVD or thyromegaly. LUNGS: Have fair airflow with few rhonchi. HEART: S1 and S2 positive. ABDOMEN: Soft, nontender. No organomegaly. EXTREMITIES: No edema. No cyanosis. NEUROLOGICAL: The patient is sleepy, arousable. Follows simple commands. MEDICATIONS: Ancef, Colace, Dilaudid, ferrous sulfate, lactated Ringer, hydrochlorothiazide, Pepcid, Synthroid. LABORATORY DATA: Hemoglobin 14, hematocrit 43.3, white blood cells 6.6, platelets 237. Sodium 142, potassium 3.9, BUN 12, creatinine 1.1, AST 25, ALT 19. ASSESSMENT AND PLAN: Ms. Micaela Fontana, 72-year-old female with incarcerated ventral hernia, status post hernia repair by Dr. Elijah Burch, hypothyroidism, hypertension, obesity, irritable bowel syndrome, bronchitis, history of hernia repair in the past, sleep apnea syndrome, urinary tract infection. Went for surgery today. Continue antibiotics. Keep head elevated at 45. Gastric and deep venous thrombosis prophylaxis. I appreciated Dr. Sellers's input. The patient has ventral hernia repair with mesh placement. Blas is still draining. We will follow up. Jade Melton MD
[2018-01-03] MEDS: Lactated Ringer's 1,000 ML IV SCH (01:36)
[2018-01-03] MEDS ORDERED: HYDROmorphone 0.5 mg/0.5 ml ISec IVP STA ×2 (01:41→10:44)
[2018-01-03] MEDS: HYDROmorphone 0.5 mg/0.5 ml ISec IVP PRN ×5 (03:44→21:43)
[2018-01-03] MEDS: ceFAZolin 1 gm in NS 1 GM/100 ML BAG IVPB SCH ×3 (06:56→21:53)
[2018-01-03 07:33] LABS: HEMOGLOBIN 13.1 g/dL (12.0-16.0); MEAN CELL VOLUME 98.8 fl (80.0-105.0); MEAN CORPUSCULAR HEMOGLOBIN 31.2 pg (25.0-35.0); MEAN CORPUSCULAR HGB CONC 31.6 g/dl (31.0-37.0); MEAN PLATELET VOLUME 10.1 fl (7.0-11.0); RBC 4.2 10^6/uL (3.5-6.1); RED CELL DISTRIBUTION WIDTH 13.8 % (11.5-14.5); WHITE BLOOD COUNT 9.9 10^3/ul (4.5-11.0)
[2018-01-03 07:47] LABS: BLOOD UREA NITROGEN 11 mg/dL (7-21); CALCIUM 9.7 mg/dL (8.4-10.5); GFR NON-AFRICAN AMERICAN > 60
[2018-01-03] MEDS: Levothyroxine 125 MCG TAB PO SCH (08:08)
--- NOTE | 2018-01-03 09:08 | CP.PCM.PN ---
Subjective - Date & Time of Evaluation Date of Evaluation: 01/03/18 Time of Evaluation: 08:59 - Subjective Subjective: General Surgery Consult Note for Dr. Burch This 72F was seen and examined this AM at bedside. Overnight she was complaining of pain. Denies any nausea or vomiting. Denies chest pain or SOB. Objective - Vital Signs/Intake and Output Vital Signs (last 24 hours): Temp Pulse Resp BP Pulse Ox 98.2 F 87 20 131/84 97 01/02/18 22:29 01/02/18 22:29 01/02/18 22:29 01/02/18 22:29 01/02/18 22:29 Intake and Output: 01/03/18 01/03/18 06:59 18:59 Intake Total 1800 Output Total 160 Balance 1640 - Medications Medications: Current Medications Cyclobenzaprine HCl (Flexeril) 5 mg PO TID [facility] Last Admin: 01/03/18 08:08 Dose: 5 mg Docusate Sodium (Colace) 100 mg PO BID [facility] Last Admin: 01/02/18 17:54 Dose: 100 mg Enoxaparin Sodium (Lovenox) 40 mg SC DAILY [facility]; Protocol Famotidine (Pepcid) 40 mg PO Q12 [facility] Last Admin: 01/02/18 22:26 Dose: Not Given Ferrous Sulfate (Feosol) 324 mg PO DAILY [facility] Last Admin: 01/02/18 17:55 Dose: 324 mg Hydrochlorothiazide (Microzide) 12.5 mg PO DAILY [facility] Last Admin: 01/02/18 17:20 Dose: Not Given Hydromorphone HCl (Dilaudid) 0.5 mg IVP Q3 PRN PRN Reason: Pain, severe (8-10) Last Admin: 01/03/18 06:55 Dose: 0.5 mg Cefazolin Sodium (Ancef 1gm In Ns) 1 gm in 100 mls @ 100 mls/hr IVPB Q8 [facility]; Protocol Last Admin: 01/03/18 06:56 Dose: 100 mls/hr Lactated Ringer's (Lactated Ringer's) 1,000 mls @ 150 mls/hr IV .Q6H40M [facility] Stop: 01/04/18 18:34 Last Admin: 01/03/18 01:36 Dose: 150 mls/hr Levothyroxine Sodium (Synthroid) 125 mcg PO 0600 [facility] Last Admin: 01/03/18 08:08 Dose: 125 mcg Lidocaine (Lidoderm) 1 ea TD DAILY [facility] - Labs Labs: 01/03/18 07:00 01/03/18 07:00 PT 12.2 SECONDS (9.4-12.5) 12/31/17 06:15 INR 1.06 12/31/17 06:15 APTT 20.1 Seconds (25.1-36.5) L 12/31/17 06:15 - Constitutional Appears: Non-toxic, No Acute Distress - Head Exam Head Exam: ATRAUMATIC, NORMOCEPHALIC - Eye Exam Eye Exam: EOMI - Respiratory Exam Respiratory Exam: NORMAL BREATHING PATTERN - Cardiovascular Exam Cardiovascular Exam: +S1, +S2 - GI/Abdominal Exam GI & Abdominal Exam: Soft. absent: Distended, Firm, Guarding, Rigid, Tenderness - Neurological Exam Neurological Exam: Alert, Awake - Psychiatric Exam Psychiatric exam: Normal Affect, Normal Mood - Skin Skin Exam: Dry, Intact Assessment and Plan - Assessment and Plan (Free Text) Assessment: 72F POD1 s/p ventral hernia repair with mesh NPO IVF Pain control just added flexiril F/U Cultures D/W Dr. Marcin Bhatt PGY3
[2018-01-03] MEDS: Lidocaine 5% Patch TD SCH (09:59)
[2018-01-03] MEDS: Enoxaparin 40 mg Syringe SC SCH (10:00)
[2018-01-03] MEDS ORDERED: Lidocaine 5% Patch TD SCH (10:00)
[2018-01-03] MEDS ORDERED: Lactated Ringer's 1,000 ML IV SCH (10:58)
--- NOTE | 2018-01-03 22:48 | OP ---
PROCEDURE DATE: 01/01/2018 SURGEON: Elijah Burch MD. PROGRAM ASSISTANT: Brien Lorenzana DO, PGY-3. ANESTHESIA ADMINISTERED BY: Dr. Uriah Gleason. TYPE OF ANESTHESIA: General endotracheal. PREOPERATIVE DIAGNOSIS: Incarcerated recurrent ventral hernia (two). POSTOPERATIVE DIAGNOSIS: Incarcerated recurrent ventral hernia (two) with wound infection. PROCEDURES: 1. Exploratory laparotomy with extensive enterolysis. 2. Ventral herniorrhaphy x2. 3. Placement of an absorbable mesh. OPERATIVE INDICATIONS: The patient is a 72-year-old female who has undergone several operative procedures one of which developed a wound infection for a hernia repair and she has spent almost the last 5 years with an incarcerated piece of colon in her abdominal wall, partly instructing her colon because of the previous surgical intervention and infection. She has been doing fairly well with this partial obstruction until several days prior to her admission when she started developing worsening abdominal cramping prompting her admission. Both the patient and her private physician, Dr. Melton, have advised the patient not to undergo surgery but at this point, due to the increasing symptoms and the partial obstruction nature, the patient and her private physician are now much more amenable to the recommendation for surgery and the patient is asking for it to be done at this time. DESCRIPTION OF PROCEDURE: The patient is brought from the same-day holding area to the operating room, identified by her wristband, undergoes time-out procedure and is placed on the table in a supine manner. Following this, she undergoes the induction of general anesthesia and the insertion of an endotracheal tube and sequential compression devices were placed on her lower extremities and a Merida catheter inserted to straight drainage. The abdomen was prepped with Hibiclens chlorhexidine preparation and the patient is aseptically draped. Midline incision is made in the epigastrium over the one reducible hernia and down alongside and around the second hernia that is incarcerated. This is approximately half way to the pubis. Sharp dissection was carried down through the subcutaneous tissues in the entire length of the incision and the peritoneum was entered between clamps above the obstructing hernia. The hernia was quite large with a wide mouth base, approximately 10 cm across, and the hernia sac is dissected free from the medial and lateral aspects of the incision with cautery scalpel. Once the hernia sac is removed and submitted to pathology in formalin, attention was drawn to the lower portion where the dissection is carried on down in the cicatrix that was in a transverse incision, is found to have a yellow thick fluid pocket with questionable infectious material. This is closed, widely excised, and submitted to pathology also in formalin after culturing aerobically and anaerobically. Dissection was carried on down below the incarcerated colon and this is dissected free with cautery scalpel and once freely removed, approximately 7 cm mass trapped within the colon, is able to be freed with milking of the colon confirming it is likely of course to be a dried, inspissated, rather large fecalith. Once the colon is now freed and all adhesions are serially ligated with the LigaSure device, the bowel is now inspected for hemostasis, confirmed and all the hernia material and adhesions are submitted in formalin and the abdomen lavaged with antibiotic-containing solution until the return is completely clear. Hemostasis is confirmed at this point and the midline is closed with interrupted [id number] #1 Novafil sutures. Due to the presence of some mild tension with the loss of the midline hernia, it is elected to place an absorbing mesh in the abdominal cavity, secured to the anterior abdominal wall with 3-0 Polysorb interrupted sutures and placing a Blas drain on top of same and bringing it out through the abdominal wall and secured with 2-0 Surgidac polyester suture. The midline is now closed with [id number] interrupted #1 Novafil sutures and the abdominal closure is now complete and the hernia is corrected. The subcutaneous space is now lavaged with antibiotic containing solution and the fascia and skin are infiltrated with the full-strength Exparel long-acting local anesthetic. The subcutaneous space was closed with 3-0 Polysorb suture and the skin with the AutoSuture skin stapler. A dry dressing is applied. A binder was placed over same. The patient is awakened, extubated, and transported to the recovery room in a satisfactory condition. Sponge, instrument, and suture count were verified as correct at the end of the procedure. Estimated blood loss during this procedure was presumptively under 100 mL of blood. The dictation will be electronically signed without being read. The surgical residents were present throughout the procedure and were extremely essential in the dissection and in the closure of the ventral hernia. Elijah Burch MD
--- NOTE | 2018-01-03 23:12 | PN ---
DATE: 01/03/2018 REFERRING PHYSICIAN: Jade Melton MD SUBJECTIVE: She is sleepy, lying in the bed, had loud snoring, dry mouth. Did have some clear liquid diet today. No cough. No sputum production. No abdominal pain. No leg pain or leg swelling. OBJECTIVE: GENERAL: No acute distress. VITAL SIGNS: Temperature is 98, heart rate 86, respiratory rate is 20, blood pressure 122/78, pulse ox 95% on room air. HEENT: Moist mucous membranes. No ulcer or thrush noted. NECK: Supple. No JVD. LUNGS: Have a fair airflow with rhonchi. HEART: S1, S2. ABDOMEN: Has a binder. Decreased bowel sounds. Tender. EXTREMITIES: There is no edema. NEUROLOGIC: Sleepy, arousable. Follows simple command. MEDICATIONS: She on Ancef 1 g IV every 8 hours, Colace 100 mg twice a day, Dilaudid 0.5 mg every 3 hours p.r.n., ferrous sulfate 324 mg daily, Flexeril 5 mg 3 times a day, lactate Ringer, IV fluids, Lidoderm patch daily, Lovenox 40 mg daily, hydrochlorothiazide 12.5 mg daily, Pepcid 40 mg every 12 hours, Synthroid 125 mcg daily. LABORATORY DATA: Shows hemoglobin 13.1, hematocrit 41.5, WBC 9.9, platelet count is 183. Sodium 138, potassium 4.2, chloride 104, bicarbonate 26, BUN is 11, creatinine 0.9, glucose 109, calcium is 9.7. Troponin 0.01. Microbiology, urine has E-coli. IMPRESSION AND PLAN: Recurrent incarcerated ventral hernia, status post surgery, hypothyroid, hypertension, obesity, irritable bowel syndrome, bronchitis, sleep apnea syndrome, urinary tract infection. Pulmonary point of view, doing well. Continue bronchodilator, incentive spirometer. Discontinue Ancef. Start cefepime. Continue Synthroid. Discontinue hydrochlorothiazide for now. Gastric prophylaxis, deep venous thrombosis prophylaxis. Follow up labs in the morning. Thank you and we will follow with you. Rick Sellers MD [facility] # [id number]
--- NOTE | 2018-01-04 01:34 | PN ---
DATE: 12/24/2017 SUBJECTIVE: Patient is a 72-year-old female. Patient was seen and examined at the bedside on 12/24/2017. Still having abdominal pain. Overnight, she was complaining about abdominal pain. No fever, no chills. No nausea or vomiting. No hematuria or hematochezia. PHYSICAL EXAMINATION: VITAL SIGNS: Temperature 98.2, pulse 87, respirations 20, blood pressure 130/84, pulse oximetry 94. HEENT: Head normocephalic, atraumatic. Eyes; PERRLA. Extraocular muscles intact. Conjunctivae clear. Nose patent. NECK: Supple. No carotid bruit. No JVD or thyromegaly. CHEST: Bilaterally symmetrical. HEART: S1 and S2 positive. LUNGS: Clear to auscultation. ABDOMEN: Soft, tender. Blas is draining. EXTREMITIES: No edema. No cyanosis. NEUROLOGICAL: The patient is awake, alert, moving all four extremities. No focal deficit. MEDICATIONS: Flexeril, Colace, Lovenox, Pepcid, iron, hydrochlorothiazide, Dilaudid, Ancef, lactate Ringer, levothyroxine, lidocaine. LABORATORY DATA: White blood cells 9.9, hemoglobin 13.1, hematocrit 41.5, platelet 183. Sodium 138, potassium 4.2, BUN 11, creatinine 0.9, glucose 109. ASSESSMENT AND PLAN: Ms. Micaela Fontana, 72-year-old lady, postoperative day #1, status post ventral hernia repair with mesh. Patient is still n.p.o., getting intravenous fluid. Pain controlled, just added Flexeril, but according to patient, with Flexeril, she slept too much. She does not like Flexeril. I reviewed Dr. Burch' notes. Patient has hypothyroidism, hypertension, obesity, irritable bowel syndrome, history of bronchitis, sleep apnea syndrome, history of multiple times urinary tract infection. Continue antibiotics. Surgery is taking care of surgical wound. Gastric and deep vein thrombosis prophylaxes. Repeat labs. We will follow up. Jade Melton MD [facility] # [id number]
[2018-01-04] MEDS: HYDROmorphone 0.5 mg/0.5 ml ISec IVP PRN ×4 (03:06→22:04)
[2018-01-04] MEDS: ceFAZolin 1 gm in NS 1 GM/100 ML BAG IVPB SCH ×3 (05:38→21:07)
[2018-01-04] MEDS: Levothyroxine 125 MCG TAB PO SCH (05:39)
[2018-01-04 07:56] LABS: HEMOGLOBIN 12.2 g/dL (12.0-16.0); MEAN CELL VOLUME 98.5 fl (80.0-105.0); MEAN CORPUSCULAR HEMOGLOBIN 31.4 pg (25.0-35.0); MEAN CORPUSCULAR HGB CONC 31.9 g/dl (31.0-37.0); MEAN PLATELET VOLUME 9.8 fl (7.0-11.0); RBC 3.88 10^6/uL (3.5-6.1); RED CELL DISTRIBUTION WIDTH 14.1 % (11.5-14.5); WHITE BLOOD COUNT 10.6 10^3/uL (4.5-11.0)
[2018-01-04 08:13] LABS: ALB/GLOB RATIO 0.9 (1.1-1.8); ALBUMIN 3.1 g/dL (3.0-4.8); ALT/SGPT 17 U/L (7-56); AST/SGOT 17 U/L (14-36); BLOOD UREA NITROGEN 11 mg/dL (7-21); CALCIUM 9.6 mg/dL (8.4-10.5); GFR NON-AFRICAN AMERICAN > 60
[2018-01-04] MEDS ORDERED: Potassium Ch 20mEq in D5-1/2NS 1,000 ML IV SCH (09:00)
--- NOTE | 2018-01-04 09:13 | CP.PCM.PN ---
Subjective - Date & Time of Evaluation Date of Evaluation: 01/04/18 Time of Evaluation: 09:09 - Subjective Subjective: General Surgery Progress Note for Dr. Burch This 72F was seen and examined this AM at bedside. No acute events reported overnight. She is complianing of p[ain reports she took one dose of flexeril and did not like the sedative affects and does not want anymore. She reports she is having dark diarrhea. She denies flatus, chest pain or SOB. Objective - Vital Signs/Intake and Output Vital Signs (last 24 hours): Temp Pulse Resp BP Pulse Ox 98.0 F 81 20 116/74 95 01/04/18 06:00 01/04/18 06:00 01/04/18 06:00 01/04/18 06:00 01/04/18 06:00 Intake and Output: 01/04/18 01/04/18 06:59 18:59 Intake Total 1200 Output Total 50 Balance 1150 - Medications Medications: Current Medications Docusate Sodium (Colace) 100 mg PO BID [facility] Last Admin: 01/03/18 17:10 Dose: 100 mg Enoxaparin Sodium (Lovenox) 40 mg SC DAILY [facility]; Protocol Last Admin: 01/03/18 10:00 Dose: 40 mg Famotidine (Pepcid) 40 mg PO Q12 [facility] Last Admin: 01/03/18 21:43 Dose: 40 mg Ferrous Sulfate (Feosol) 324 mg PO DAILY [facility] Last Admin: 01/03/18 10:00 Dose: 324 mg Hydrochlorothiazide (Microzide) 12.5 mg PO DAILY [facility] Last Admin: 01/03/18 10:00 Dose: 12.5 mg Hydromorphone HCl (Dilaudid) 0.5 mg IVP Q3 PRN PRN Reason: Pain, severe (8-10) Last Admin: 01/04/18 08:14 Dose: 0.5 mg Cefazolin Sodium (Ancef 1gm In Ns) 1 gm in 100 mls @ 100 mls/hr IVPB Q8 [facility]; Protocol Last Admin: 01/04/18 05:38 Dose: 100 mls/hr Potassium Chloride/Dextrose/Sod Cl (Potassium Chl 20 Meq In D5-1/2ns) 1,000 mls @ 135 mls/hr IV .Q7H25M [facility] Ketorolac Tromethamine (Toradol) 15 mg IVP Q6 PRN PRN Reason: Muscle spasm Levothyroxine Sodium (Synthroid) 125 mcg PO 0600 [facility] Last Admin: 01/04/18 05:39 Dose: 125 mcg Lidocaine (Lidoderm) 1 ea TD DAILY [facility] Last Admin: 01/03/18 09:59 Dose: 1 ea - Labs Labs: 01/04/18 07:40 01/04/18 07:40 PT 12.2 SECONDS (9.4-12.5) 12/31/17 06:15 INR 1.06 12/31/17 06:15 APTT 20.1 Seconds (25.1-36.5) L 12/31/17 06:15 - Constitutional Appears: Non-toxic, No Acute Distress - Head Exam Head Exam: ATRAUMATIC, NORMOCEPHALIC - Eye Exam Eye Exam: EOMI - ENT Exam ENT Exam: Mucous Membranes Moist - Respiratory Exam Respiratory Exam: NORMAL BREATHING PATTERN - Cardiovascular Exam Cardiovascular Exam: +S1, +S2 - GI/Abdominal Exam GI & Abdominal Exam: Soft. absent: Guarding, Rigid, Tenderness - Neurological Exam Neurological Exam: Alert, Awake - Psychiatric Exam Psychiatric exam: Normal Affect, Normal Mood - Skin Skin Exam: Dry, Intact Assessment and Plan - Assessment and Plan (Free Text) Assessment: 72F who is POD#2 s/p ventral hernia repair Pain control Monitor bowel function Continue liquid diet Patient is not clear for transfer to TCU or home at this time. D/W Dr. Marcin Bhatt PGY3
[2018-01-04] MEDS: Lidocaine 5% Patch TD SCH (11:05)
[2018-01-04] MEDS: Enoxaparin 40 mg Syringe SC SCH (11:06)
--- NOTE | 2018-01-04 14:08 | PN ---
DATE: 01/04/2018 PULMONARY PROGRESS NOTE REFERRING PHYSICIAN: Jade Melton MD. SUBJECTIVE: She is out of bed to chair, just finished her lunch. Overall feels okay. No headache. No rhinitis. Did pass some gas and small hard stool. Does have abdominal pain. Drainage has small bloody. No leg swelling. OBJECTIVE: GENERAL: In no acute distress. VITAL SIGNS: Temperature is 98, heart rate is 81, respiratory rate is 20, blood pressure 116/74, pulse ox 95% on room air. HEENT: Moist mucous membrane. Crowded airway. NECK: Supple. No JVD. LUNGS: Have a fair airflow with rhonchi. HEART: S1 and S2. ABDOMEN: Has a dressing on the wound. Drainage had small bloody secretion. Decreased bowel sound. Soft to touch. EXTREMITIES: There is no edema. NEUROLOGICAL: Awake and alert. Follows simple command. MEDICATIONS: She is on cephazolin 1 g every 8 hours, Colace 100 mg twice a day, Dilaudid 0.5 mg every 6 hours p.r.n., ferrous sulfate 324 mg daily, Flexeril 5 mg three times a day, Lidoderm patch to the affected area, Lovenox 40 mg daily, hydrochlorothiazide 12.5 mg daily, Pepcid 40 mg every 12 hours, IV fluid with potassium 135 mL/hour, Synthroid 112 mcg daily, Toradol 50 mg IV every 6 hours. LABORATORY DATA: Shows hemoglobin 12.2, hematocrit 38.2, WBC 10.6, platelet is 163. Sodium 135, potassium 4, chloride 100, bicarbonate 28, BUN 11, creatinine 0.9, glucose 101, calcium is 9.6, phosphorus 3, magnesium 2, AST 17, ALT 17, alk phos is 67, albumin is 3.1. Urine culture has E. coli. No other change noted. IMPRESSION AND PLAN: Recurrent incarcerated ventral hernia, status post ; hypothyroid; hypertension; obesity; irritable bowel syndrome; urinary tract infection; bronchitis. Pulmonary point of view, doing okay. Continue cephazolin antibiotics, incentive spirometer, out of bed to chair. Gastric prophylaxis. We will add deep venous thrombosis prophylaxis. Thank you and we will follow with you. Rick Sellers MD [facility] # [id number]
[2018-01-04] MEDS: Potassium Chloride 20 MEQ in Dextrose 5%/0.45% NS 1,000 ML IV SCH (22:15)
[2018-01-04] MEDS ORDERED: HYDROmorphone 1 mg/ml ISec IVP PRN (22:20)
--- NOTE | 2018-01-05 00:21 | PN ---
DATE: 01/04/2018 SUBJECTIVE: Patient is a 72-year-old female. Patient was seen and examined on the bedside on 01/04/2018, looking comfortable. Overall feels okay, but still complaining about pain, back pain, abdominal pain. No fever. No chills. Did pass more gas and small hard stool. Does have abdominal pain. Drainage has been bloody. No fever. No chills. No hematuria or hematochezia. PHYSICAL EXAMINATION: VITAL SIGNS: Temperature 98, heart rate 81, respiratory rate 20, blood pressure 116/74, pulse oximetry 95% on room air. HEENT: Head: Normocephalic, atraumatic. Eyes: PERRLA. Extraocular muscles intact. Conjunctivae clear. Nose patent. NECK: Supple. No carotid bruit. No JVD or thyromegaly. CHEST: Bilaterally symmetrical. HEART: S1 and S2 positive. LUNGS: Have fair airflow with rhonchi. ABDOMEN: Has the surgical wound. Blas is draining small bloody secretions. Decreased bowel sound. Soft to touch and tender at the surgical place. EXTREMITIES: No edema. No cyanosis. NEUROLOGIC: Patient is awake and alert. Moving all 4 extremities. No focal deficits. MEDICATIONS: Cefazolin, Colace, Dilaudid, ferrous sulfate, Flexeril, Lidoderm, Lovenox, hydrochlorothiazide, Pepcid, potassium, Synthroid, and Toradol. LABORATORY DATA: Hemoglobin 12.2, hematocrit 38.2, white blood cells 10.6, platelets 163. Sodium 135, potassium 4, BUN 11, creatinine 0.9, glucose 101, AST 17, ALT 17. ASSESSMENT AND PLAN: Ms. Micaela Fontana is a 72-year-old lady with recurrent incarcerated ventral hernia status post surgery by Dr. Burch; hypothyroidism; hypertension; obesity; irritable bowel syndrome; urinary tract infection multiple times; bronchitis. Now, she is doing better. Continue cefazolin antibiotics, incentive spirometry, out of bed, physical therapy. Gastric and deep venous thrombosis prophylaxes. Advance diet as tolerated. Repeat labs and pain management. Jade Melton MD [facility] # [id number]
[2018-01-05] MEDS: ceFAZolin 1 gm in NS 1 GM/100 ML BAG IVPB SCH ×3 (05:27→21:15)
[2018-01-05] MEDS: Levothyroxine 125 MCG TAB PO SCH (05:28)
[2018-01-05] MEDS: Enoxaparin 40 mg Syringe SC SCH (09:45)
[2018-01-05] MEDS: Lidocaine 5% Patch TD SCH (09:45)
[2018-01-05] MEDS ORDERED: Mineral Oil (480 ml) PO STA (12:21)
--- NOTE | 2018-01-05 12:38 | CP.PCM.PCO ---
Physician Communication Note - Physician Communication Note Physician Communication Note: Liquids til flatus/Min Oil for fecalith(obstructing)
[2018-01-05] MEDS: Potassium Chloride 20 MEQ in Dextrose 5%/0.45% NS 1,000 ML IV SCH ×2 (13:12→22:21)
--- NOTE | 2018-01-05 18:56 | PN ---
DATE: 01/05/2018 PULMONARY PROGRESS NOTE REFERRING PHYSICIAN: Jade Melton MD. SUBJECTIVE: She is lying in the bed, head up 45 degrees. Was able to get out of the bed to ambulate. Still having no bowel movement. Eating, getting clear liquid diet. Feels bloated. No chest pain. No nausea. No leg pain or leg swelling. PHYSICAL EXAMINATION: GENERAL: In no acute distress. VITAL SIGNS: Temperature is 98, heart rate is 78, respiratory rate is 20, blood pressure 116/63, pulse ox 96% on room air. HEENT: Moist mucous membrane. No ulcer or thrush noted. NECK: Supple. No JVD. LUNGS: Have a fair airflow with rhonchi. HEART: S1 and S2. ABDOMEN: Decreased bowel sounds. Has a dressing over the incision site. Nondistended abdomen. Mild tenderness. EXTREMITIES: There is no edema. NEUROLOGIC: Awake and alert. Follows simple command. MEDICATIONS: She is on Ancef 1 g IV every 8 hours, Colace 100 mg twice a day, ferrous sulfate 324 mg daily, Flexeril 5 mg every 8 hours, lidocaine patch to affected area, Lovenox 40 mg daily, hydrochlorothiazide 12.5 mg daily, Pepcid 40 mg every 12 hours, potassium with IV fluid, Synthroid 125 mcg daily, Toradol 50 mg every 6 hours, and Ultram 50 mg every 8 hours p.r.n. LABORATORY DATA: No new lab is available since yesterday. Microbiology: Urine culture has E. coli. IMPRESSION AND PLAN: Recurrent incarcerated ventral hernia, status post hernia ; hypothyroid; hypertension; obesity; irritable bowel syndrome; urinary tract infection; bronchitis. Pulmonary point of view, she is doing well. Continue bronchodilator. Keep head at 45 degrees. Antibiotics. Gastric prophylaxis. DVT prophylaxis. Out of bed to chair. Physical therapy. May use p.r.n. Dulcolax suppository. Thank you and we will follow with you. Rick Sellers MD
[2018-01-06] MEDS: ceFAZolin 1 gm in NS 1 GM/100 ML BAG IVPB SCH ×3 (05:18→21:52)
[2018-01-06] MEDS: Levothyroxine 125 MCG TAB PO SCH (05:20)
[2018-01-06] MEDS: Potassium Chloride 20 MEQ in Dextrose 5%/0.45% NS 1,000 ML IV SCH (09:19)
[2018-01-06] MEDS: Lidocaine 5% Patch TD SCH (09:20)
[2018-01-06] MEDS: Enoxaparin 40 mg Syringe SC SCH (09:20)
--- NOTE | 2018-01-06 09:25 | CP.PCM.PN ---
Subjective - Date & Time of Evaluation Date of Evaluation: 01/06/18 Time of Evaluation: 07:15 - Subjective Subjective: Patient seen and examined. No acute events over night. Reports passing flatus and having blackish water BM. States she is feeling better. Objective - Vital Signs/Intake and Output Vital Signs (last 24 hours): Temp Pulse Resp BP Pulse Ox 97.5 F L 65 20 108/57 L 96 01/06/18 06:00 01/06/18 06:00 01/06/18 06:00 01/06/18 06:00 01/06/18 06:00 Intake and Output: 01/06/18 01/06/18 06:59 18:59 Intake Total 1300 Output Total 50 Balance 1250 - Medications Medications: Current Medications Cyclobenzaprine HCl (Flexeril) 5 mg PO Q8 [facility] Last Admin: 01/06/18 05:18 Dose: 5 mg Docusate Sodium (Colace) 100 mg PO BID [facility] Last Admin: 01/05/18 17:13 Dose: 100 mg Enoxaparin Sodium (Lovenox) 40 mg SC DAILY [facility]; Protocol Last Admin: 01/05/18 09:45 Dose: 40 mg Famotidine (Pepcid) 40 mg PO Q12 [facility] Last Admin: 01/05/18 21:15 Dose: 40 mg Ferrous Sulfate (Feosol) 324 mg PO DAILY [facility] Last Admin: 01/05/18 09:45 Dose: 324 mg Hydrochlorothiazide (Microzide) 12.5 mg PO DAILY [facility] Last Admin: 01/05/18 09:45 Dose: 12.5 mg Cefazolin Sodium (Ancef 1gm In Ns) 1 gm in 100 mls @ 100 mls/hr IVPB Q8 [facility]; Protocol Last Admin: 01/06/18 05:18 Dose: 100 mls/hr Potassium Chloride 20 meq/ (Dextrose/Sodium Chloride) 1,010 mls @ 120 mls/hr IV .Q8H25M [facility] Last Admin: 01/05/18 22:21 Dose: 120 mls/hr Ketorolac Tromethamine (Toradol) 15 mg IVP Q6 [facility] Last Admin: 01/06/18 05:21 Dose: 15 mg Levothyroxine Sodium (Synthroid) 125 mcg PO 0600 [facility] Last Admin: 01/06/18 05:20 Dose: 125 mcg Lidocaine (Lidoderm) 1 ea TD DAILY [facility] Last Admin: 01/05/18 09:45 Dose: 1 ea Tramadol HCl (Ultram) 50 mg PO TID PRN PRN Reason: Pain, moderate (4-7) - Labs Labs: 01/04/18 07:40 01/04/18 07:40 PT 12.2 SECONDS (9.4-12.5) 12/31/17 06:15 INR 1.06 12/31/17 06:15 APTT 20.1 Seconds (25.1-36.5) L 12/31/17 06:15 - Constitutional Appears: No Acute Distress - Head Exam Head Exam: NORMOCEPHALIC - Eye Exam Eye Exam: EOMI, Normal appearance - ENT Exam ENT Exam: Mucous Membranes Moist - Respiratory Exam Respiratory Exam: NORMAL BREATHING PATTERN - Cardiovascular Exam Cardiovascular Exam: +S1, +S2 - GI/Abdominal Exam GI & Abdominal Exam: Soft - Neurological Exam Neurological Exam: Alert, Awake, Oriented x3 - Psychiatric Exam Psychiatric exam: Normal Mood - Skin Skin Exam: Dry, Intact, Warm Assessment and Plan - Assessment and Plan (Free Text) Assessment: 72F who is POD#4 s/p ventral hernia repair Plan: Pain control Monitor bowel function Continue liquid diet May advance diet later this AM Prune Juice Protein supplementation Encourage ambulation OOB to chair D/W Dr. Marcin Damon PGY3
[2018-01-06] MEDS: POLYETHYLENE GLYCOL 3350 17 GM/Dose PACKET PO SCH (17:15)
--- NOTE | 2018-01-06 21:38 | PN ---
DATE: 01/06/2018 SUBJECTIVE: Patient is 72-year-old female. Patient was seen and examined at the bedside, looking comfortable. No nausea, vomiting, diarrhea. No hematuria or hematochezia. No swelling of the legs. No chest pain. No palpitation. No headache. No dizziness. Abdominal pain is better. As per patient, she is passing watery stool, black color. No event happened overnight, passing flatus, but her abdominal spasms are getting better. She was doing physical therapy, walking around. PHYSICAL EXAMINATION: VITAL SIGNS: Temperature 97.5, pulse 65, respiratory rate 20, blood pressure 108/57, pulse oximetry 96. HEENT: Head: Normocephalic and atraumatic. Eyes: PERRLA. Extraocular muscles intact. Conjunctivae clear. Nose patent. Mucous membrane moist. NECK: Supple. No carotid bruit. No JVD or thyromegaly. CHEST: Bilaterally symmetrical. HEART: S1, S2 positive. LUNGS: Clear to auscultation. ABDOMEN: Soft. Bowel sounds present. No organomegaly. EXTREMITIES: No edema. No cyanosis. NEUROLOGIC: Patient is awake and alert. Moving all four extremities. No focal deficits. MEDICATIONS: Flexeril, Colace, Lovenox, Pepcid, Feosol, hydrochlorothiazide, Ancef, potassium, tramadol, Synthroid, Lidoderm patch. LABORATORY DATA: White blood cells 10.6, hemoglobin 12.2, hematocrit 38.2, platelets 163. Sodium 135, potassium 4, BUN 11, creatinine 0.9, glucose 101. ASSESSMENT AND PLAN: Ms. Micaela Fontana, 72-year-old lady with multiple medical problems, is post operative day #4 status post ventral hernia repair. According to Surgery, can advance diet, prune juice, protein supplementation, encourage ambulation, out of bed to chair. Discussion done with Dr. Elijah Burch. Patient has recurrent incarcerated ventral hernia, hypothyroidism, hypertension, obesity, irritable bowel syndrome, history of multiple time urinary tract infections. Patient is improving. Continue antibiotics, gastric and deep vein thrombosis prophylaxes. We will follow up. Jade Melton MD [facility] # [id number]
--- NOTE | 2018-01-06 22:02 | PN ---
DATE: 01/06/2018 PULMONARY PROGRESS NOTE REFERRING PHYSICIAN: Jade Melton MD. SUBJECTIVE: She is lying in the bed, head at 45 degrees. Night was unremarkable. Had some watery discharge from the rectum, but no bowel movement. Did not pass any gas, but no nausea, no vomiting. No shortness of breath. No leg pain. No leg swelling. OBJECTIVE: GENERAL: In no acute distress. VITAL SIGNS: Temperature is 98, heart rate is 79, respiratory rate is 20, blood pressure 111/72, pulse ox 98% on room air. HEENT: Moist mucous membrane. Crowded airway. NECK: Supple. No JVD. LUNGS: Have a fair airflow with few rhonchi. HEART: S1 and S2. ABDOMEN: Soft. Surgical scar healing well. EXTREMITIES: There is no edema. NEUROLOGICAL: Awake and alert. Follows simple command. MEDICATIONS: She is on Ancef 1 g IV every 8 hours, Colace 100 mg twice a day, ferrous sulfate 324 mg daily, Flexeril 5 mg every 8 hours, lidocaine patch to the affected area, Lovenox 40 mg subcu daily, hydrochlorothiazide 12.5 mg daily, MiraLax 17 g p.o. twice a day, Pepcid 40 mg twice a day, Synthroid 125 mcg daily, Toradol 50 mg IV every 6 hours, Ultram 50 mg every 8 hours p.r.n., Zofran p.r.n. basis. LABORATORY DATA: Reviewed. Microbiology showed urine has E. coli. IMPRESSION AND PLAN: Recurrent incarcerated ventral hernia, status post hernia repair; hypothyroid; hypertension; obesity; irritable bowel syndrome; urinary tract infection. Pulmonary point of view, doing well. Continue antibiotics, bronchodilator. Keep head at 45 degrees. Gastric prophylaxis. Deep venous thrombosis prophylaxis. Incentive spirometer. Start ambulating. Stool softener. Thank you and we will follow with you. Rick Sellers MD
[2018-01-07] MEDS: ceFAZolin 1 gm in NS 1 GM/100 ML BAG IVPB SCH (05:55)
[2018-01-07] MEDS: Levothyroxine 125 MCG TAB PO SCH (05:56)
[2018-01-07 07:23] LABS: HEMOGLOBIN 10.7 g/dL (12.0-16.0); MEAN CELL VOLUME 97.6 fl (80.0-105.0); MEAN CORPUSCULAR HEMOGLOBIN 31.7 pg (25.0-35.0); MEAN CORPUSCULAR HGB CONC 32.4 g/dl (31.0-37.0); MEAN PLATELET VOLUME 9.8 fl (7.0-11.0); RBC 3.38 10^6/uL (3.5-6.1); RED CELL DISTRIBUTION WIDTH 13.7 % (11.5-14.5); WHITE BLOOD COUNT 5.6 10^3/uL (4.5-11.0)
--- NOTE | 2018-01-07 08:19 | CP.PCM.PN ---
Subjective - Date & Time of Evaluation Date of Evaluation: 01/07/18 Time of Evaluation: 08:18 - Subjective Subjective: Patient seen and examined. Denies fever/chills. Reports passing flatus and having BM. Tolerating diet. Objective - Vital Signs/Intake and Output Vital Signs (last 24 hours): Temp Pulse Resp BP Pulse Ox 98.1 F 62 20 116/73 100 01/07/18 08:14 01/07/18 08:14 01/07/18 08:14 01/07/18 08:14 01/07/18 08:14 Intake and Output: 01/07/18 01/07/18 06:59 18:59 Intake Total 180 Balance 180 - Medications Medications: Current Medications Cyclobenzaprine HCl (Flexeril) 5 mg PO Q8 [facility] Last Admin: 01/07/18 05:56 Dose: 5 mg Docusate Sodium (Colace) 100 mg PO BID [facility] Last Admin: 01/06/18 17:15 Dose: 100 mg Enoxaparin Sodium (Lovenox) 40 mg SC DAILY [facility]; Protocol Last Admin: 01/06/18 09:20 Dose: 40 mg Famotidine (Pepcid) 40 mg PO Q12 [facility] Last Admin: 01/06/18 21:52 Dose: 40 mg Ferrous Sulfate (Feosol) 324 mg PO DAILY [facility] Last Admin: 01/06/18 09:20 Dose: 324 mg Hydrochlorothiazide (Microzide) 12.5 mg PO DAILY [facility] Last Admin: 01/06/18 09:20 Dose: 12.5 mg Cefazolin Sodium (Ancef 1gm In Ns) 1 gm in 100 mls @ 100 mls/hr IVPB Q8 [facility]; Protocol Last Admin: 01/07/18 05:55 Dose: 100 mls/hr Ketorolac Tromethamine (Toradol) 15 mg IVP Q6 [facility] Last Admin: 01/07/18 05:56 Dose: 15 mg Levothyroxine Sodium (Synthroid) 125 mcg PO 0600 [facility] Last Admin: 01/07/18 05:56 Dose: 125 mcg Lidocaine (Lidoderm) 1 ea TD DAILY [facility] Last Admin: 01/06/18 09:20 Dose: 1 ea Ondansetron HCl (Zofran Inj) 4 mg IVP Q6H PRN PRN Reason: Nausea/Vomiting Last Admin: 01/06/18 13:32 Dose: 4 mg Polyethylene Glycol (Miralax) 17 gm PO BID [facility] Last Admin: 01/06/18 17:15 Dose: 17 gm Tramadol HCl (Ultram) 50 mg PO TID PRN PRN Reason: Pain, moderate (4-7) - Labs Labs: 01/07/18 07:00 01/04/18 07:40 PT 12.2 SECONDS (9.4-12.5) 12/31/17 06:15 INR 1.06 12/31/17 06:15 APTT 20.1 Seconds (25.1-36.5) L 12/31/17 06:15 - Constitutional Appears: No Acute Distress - Head Exam Head Exam: NORMOCEPHALIC - Eye Exam Eye Exam: Normal appearance - ENT Exam ENT Exam: Mucous Membranes Moist - Respiratory Exam Respiratory Exam: NORMAL BREATHING PATTERN - Cardiovascular Exam Cardiovascular Exam: +S1, +S2 - GI/Abdominal Exam GI & Abdominal Exam: Soft. absent: Distended, Guarding, Rigid, Rebound - Neurological Exam Neurological Exam: Alert, Awake, Oriented x3 - Psychiatric Exam Psychiatric exam: Normal Mood - Skin Skin Exam: Dry, Intact, Warm Assessment and Plan - Assessment and Plan (Free Text) Assessment: 72F who is POD#5 s/p ventral hernia repair Plan: Pain control prn Monitor bowel function HHD Prune Juice Protein supplementation Encourage ambulation OOB to chair Will pull leelee drain prior to d/c D/W Dr. Marcin Damon PGY3
--- NOTE | 2018-01-07 08:57 | PN ---
DATE: 01/05/2018 SUBJECTIVE: The patient is a 72-year-old female. The patient was seen and examined on the bedside on 01/05/2018, looking comfortable. Actually, sitting on the chair. No fever. No chills. Feels better, feeling bloated. She did bowel movement, having clear liquid. No chest pain. No nausea, vomiting or diarrhea. No hematuria or hematochezia. No dizziness. PHYSICAL EXAMINATION: VITAL SIGNS: Temperature 98, heart rate 78, respirations 20, blood pressure 116/63, pulse oximetry 96% on room air. HEENT: Head normocephalic, atraumatic. Eyes PERRLA. Extraocular muscles intact. Conjunctivae clear. Nose patent. NECK: Supple. No carotid bruit. No JVD or thyromegaly. CHEST: Bilaterally symmetrical. HEART: S1 and S2 positive. LUNGS: Clear to auscultation. ABDOMEN: Soft, tender, decreased bowel sounds. Has dressing on the incision site. J-tube is draining. EXTREMITIES: No edema. No cyanosis. NEUROLOGICAL: The patient is awake and alert. Follows simple commands. MEDICATIONS: Ancef, Colace, ferrous sulfate, Flexeril, Lidoderm, Lovenox, hydrochlorothiazide, Pepcid, Synthroid, Toradol. LABORATORY DATA: We do not have labs today, but I reviewed old labs. ASSESSMENT AND PLAN: Ms. Micaela Arauz is a 72-year-old lady with recurrent incarcerated ventral hernia, status post herniorrhaphy; hypothyroidism; hypertension; obesity; irritable bowel syndrome; degenerative joint disease, urinary tract infections. Continue bronchodilators. Keep head elevated at 45 degrees. Antibiotics. Gastric prophylaxis, deep venous thrombosis prophylaxis. Out of bed. Repeat labs. Jade Melton MD
[2018-01-07 09:23] LABS: CALCIUM 9.3 mg/dL (8.4-10.5)
[2018-01-07] MEDS: Lidocaine 5% Patch TD SCH (11:01)
[2018-01-07] MEDS: Enoxaparin 40 mg Syringe SC SCH (11:01)
[2018-01-07] MEDS: POLYETHYLENE GLYCOL 3350 17 GM/Dose PACKET PO SCH ×2 (11:02→19:46)
[2018-01-07] MEDS ORDERED: Bisacodyl 5mg EC Tab PO ONE (11:03)
[2018-01-07] MEDS ORDERED: Magnesium Citrate Oral SOL (300 ml) PO ONE (11:04)
--- NOTE | 2018-01-07 11:05 | CP.PCM.PCO ---
Physician Communication Note - Physician Communication Note Physician Communication Note: Needs large bowel fecalith passage now
--- NOTE | 2018-01-08 00:06 | PN ---
DATE: 01/07/2018 PULMONARY PROGRESS NOTE REFERRING PHYSICIAN: Dr. Melton SUBJECTIVE: She is out of bed to chair, had a bowel movement today. Feels better. No headache, no rhinitis. No chest pain. Still has mild incision site discomfort. No leg pain or leg swelling. OBJECTIVE: GENERAL: In no acute distress. VITAL SIGNS: Temp is 98, heart rate is 69, respiratory rate is 20, blood pressure 107/72, pulse of 95% on room air. HEENT: Moist mucous membrane. No ulcer or thrush noted. NECK: Supple. No JVD. LUNGS: Have fair airflow with rhonchi. HEART: S1 and S2. ABDOMEN: Positive bowel sounds. Incision site looks okay. EXTREMITIES: There is no edema. NEUROLOGIC: Awake and alert, follows simple command. MEDICATIONS: Is on ferrous sulfate 324 mg daily, Flexeril 5 mg every 8 hour, lidocaine is daily, Lovenox 40 mg subcu daily, hydrochlorothiazide 12.5 mg daily, MiraLax 17 g twice a day, Pepcid 40 mg twice a day, Synthroid 125 mcg daily, Toradol 50 mg IV every 6 hours, Ultram 50 mg three times a day p.r.n., Zofran p.r.n. basis. LABORATORY DATA: Shows hemoglobin 10.7, hematocrit 33, WBC 5.6, platelet count is 182. Sodium 135, potassium 4.2, chloride 104, bicarbonate 28, BUN 14, creatinine 1.1, glucose 90, calcium is 9.3. Microbiology, urine culture has E. coli. IMPRESSION AND PLAN: Recurrent incarcerated hernia requiring hernia repair, hypothyroid, hypertension, obesity, irritable bowel syndrome, urinary tract infection. Pulmonary point of view, doing okay. Continue stool softener, antibiotics, gastric prophylaxis, deep venous thrombosis prophylaxis, out of bed to chair. Spoke to family at bedside. All the questions answered. Thank you and we will follow with you. Rick Sellers MD
--- NOTE | 2018-01-08 01:19 | PN ---
DATE: 01/07/2018 SUBJECTIVE: Patient is a 72-year-old female. Patient was seen and examined on the bedside on 01/07/2018, looking comfortable. Abdominal cramps are better, but still passing watery blackish stool. No fever. No chills. No headache. No dizziness. Tolerating food. PHYSICAL EXAMINATION: VITAL SIGNS: Temperature 98.1, pulse 62, respiratory rate 20, blood pressure 116/73, pulse oximetry 100%. HEENT: Head: Normocephalic and atraumatic. Eyes: PERRLA. Extraocular muscles intact. Conjunctivae clear. Nose patent. Mucous membrane moist. NECK: Supple. No carotid bruit. No JVD or thyromegaly. CHEST: Bilaterally symmetrical. HEART: S1 and S2 positive. LUNGS: Clear to auscultation. ABDOMEN: Soft and tender at surgical place. EXTREMITIES: No edema. No cyanosis. NEUROLOGIC: Patient is awake and alert. Moving all 4 extremities. No focal deficit. MEDICATIONS: Flexeril, Colace, Lovenox, Pepcid, Feosol, Microzide, Ancef, Toradol, Synthroid, Lidoderm, Zofran, MiraLax, tramadol. LABORATORY DATA: White blood cells 5.6, hemoglobin 10.7, hematocrit 32, platelets 182. Sodium 135, potassium 4, BUN 11, creatinine 0.9, glucose 101. ASSESSMENT AND PLAN: Ms. Micaela Fontana is a 72-year-old lady with anemia; constipation; hypothyroidism; iron deficiency; has postoperative day 5 status post ventral hernia repair. Plan is controlling pain, reaching bowel function. Prune juice and protein supplementation. Encourage ambulation. Out of bed to the chair. According to Dr. Burch, we will take out Blas drain. Appreciated Dr. Elijah Bruch' communication report. According to him, large bowel fecalith passage coming out now. Recent history of recurrent incarcerated ventral hernia, now status post hernia repair, hypertension, irritable bowel syndrome, urinary tract infection multiple times. We will continue antibiotics. Continue present treatment. Gastrointestinal and deep venous thrombosis prophylaxes. Repeat labs. We will follow up. Jade Melton MD [facility] # [id number]
[2018-01-08] MEDS: Levothyroxine 125 MCG TAB PO SCH (06:05)
[2018-01-08 07:30] LABS: IRON 35 ug/dL (45-180)
[2018-01-08 07:39] LABS: % IRON SATURATION 14 % (20-55); TOTAL IRON BINDING CAPACITY 258 ug/dL (265-497)
[2018-01-08 07:53] VITALS: BP 148/85; PULSE 63; RESP 20; TEMP 98.1; O2SAT 97
--- NOTE | 2018-01-08 08:02 | CP.PCM.PN ---
Addendum entered and electronically signed by Nish Leonard DO 01/08/18 09:53: Rectal exam showed guaiac positive stool. Original Note: Subjective - Date & Time of Evaluation Date of Evaluation: 01/08/18 Time of Evaluation: 07:59 - Subjective Subjective: Nish Leonard, PGY-1, Surgery Progress note for Dr. Burch Patient seen and examined at bedside. No overnight events reported. Patient reports 5 episodes of diarrhea over the past 24 hours but denies any nausea, vomiting, abdominal, dysuria, or hematuria overnight. Objective - Vital Signs/Intake and Output Vital Signs (last 24 hours): Temp Pulse Resp BP Pulse Ox 98.1 F 63 20 148/85 97 01/08/18 07:52 01/08/18 07:52 01/08/18 07:52 01/08/18 07:52 01/08/18 07:52 Intake and Output: 01/08/18 01/08/18 06:59 18:59 Intake Total 180 Balance 180 - Medications Medications: Current Medications Cyclobenzaprine HCl (Flexeril) 5 mg PO Q8 [facility] Last Admin: 01/08/18 06:05 Dose: 5 mg Docusate Sodium (Colace) 100 mg PO BID [facility] Last Admin: 01/07/18 19:58 Dose: Not Given Enoxaparin Sodium (Lovenox) 40 mg SC DAILY [facility]; Protocol Last Admin: 01/07/18 11:01 Dose: 40 mg Famotidine (Pepcid) 40 mg PO Q12 [facility] Last Admin: 01/07/18 22:09 Dose: 40 mg Ferrous Sulfate (Feosol) 324 mg PO DAILY [facility] Last Admin: 01/07/18 11:02 Dose: 324 mg Hydrochlorothiazide (Microzide) 12.5 mg PO DAILY [facility] Last Admin: 01/07/18 11:01 Dose: 12.5 mg Ketorolac Tromethamine (Toradol) 15 mg IVP Q6 [facility] Last Admin: 01/08/18 06:06 Dose: Not Given Levothyroxine Sodium (Synthroid) 125 mcg PO 0600 [facility] Last Admin: 01/08/18 06:05 Dose: 125 mcg Lidocaine (Lidoderm) 1 ea TD DAILY [facility] Last Admin: 01/07/18 11:01 Dose: 1 ea Ondansetron HCl (Zofran Inj) 4 mg IVP Q6H PRN PRN Reason: Nausea/Vomiting Last Admin: 01/06/18 13:32 Dose: 4 mg Polyethylene Glycol (Miralax) 17 gm PO BID [facility] Last Admin: 01/07/18 19:46 Dose: Not Given Tramadol HCl (Ultram) 50 mg PO TID PRN PRN Reason: Pain, moderate (4-7) - Labs Labs: 01/07/18 07:00 01/07/18 07:00 PT 12.2 SECONDS (9.4-12.5) 12/31/17 06:15 INR 1.06 12/31/17 06:15 APTT 20.1 Seconds (25.1-36.5) L 12/31/17 06:15 - Constitutional Appears: Well, Non-toxic, No Acute Distress - Head Exam Head Exam: ATRAUMATIC, NORMAL INSPECTION, NORMOCEPHALIC - Eye Exam Eye Exam: EOMI Pupil Exam: PERRL - ENT Exam ENT Exam: Mucous Membranes Moist - Neck Exam Neck Exam: Full ROM - Respiratory Exam Respiratory Exam: Clear to Ausculation Bilateral - Cardiovascular Exam Cardiovascular Exam: REGULAR RHYTHM - GI/Abdominal Exam GI & Abdominal Exam: Distended (mild), Soft Additional comments: incision is nontender, nonerythematous, not warm, drain in place - Extremities Exam Extremities Exam: Full ROM - Neurological Exam Neurological Exam: Alert, Awake, CN II-XII Intact, Oriented x3 - Psychiatric Exam Psychiatric exam: Normal Affect, Normal Mood - Skin Skin Exam: Dry, Intact, Normal Color Assessment and Plan - Assessment and Plan (Free Text) Assessment: 72 year old female with past medical history of fibromyalgia, uterine cancer s/p resection, IBS, and hypothyroidism presents with abdominal wall hernia with transverse colon in hernia. Patient had ventral hernia surgery with mesh which showed 3 abscess that were removed and old mesh was attached to bowel. Patient is post op day 6. Plan: Keep the drain in place due to output. Reduce laxative use due to frequent diarrhea. Stool occult test to be performed to rule out GI bleed. Follow up labs and replete electrolytes as necessary. Pain control with tramadol and toradol. DVT prophylaxis with lovenox and GI prophylaxis with pepcid. Will discuss plan with Dr. Burch.
[2018-01-08 09:35] LABS: BASO # 0.02 K/mm3 (0.0-2.0); BASO % 0.3 % (0.0-3.0); EOS # 0.3 (0.0-0.7); EOS % 4.6 % (1.5-5.0); GRAN # 3.7 (1.4-6.5); GRAN % 62.8 % (50.0-68.0); HEMOGLOBIN 11.2 g/dL (12.0-16.0); LYMPH # 1.3 (1.2-3.4); LYMPH % 22.6 % (22.0-35.0); MEAN CORPUSCULAR HEMOGLOBIN 31.5 pg (25.0-35.0); MEAN CORPUSCULAR HGB CONC 32.2 g/dl (31.0-37.0); MEAN PLATELET VOLUME 10.2 fl (7.0-11.0); MONO # 0.6 (0.1-0.6); MONO % 9.7 % (1.0-6.0); RBC 3.55 10^6/uL (3.5-6.1); RED CELL DISTRIBUTION WIDTH 13.6 % (11.5-14.5); WHITE BLOOD COUNT 5.9 10^3/uL (4.5-11.0)
--- NOTE | 2018-01-08 10:28 | CP.PCM.PCO ---
Physician Communication Note - Physician Communication Note Physician Communication Note: OK d/c home-Drain removal + 1/2 tabitha
[2018-01-08] MEDS: Enoxaparin 40 mg Syringe SC SCH (10:36)
[2018-01-08] MEDS: Lidocaine 5% Patch TD SCH (10:37)
[2018-01-08] MEDS: POLYETHYLENE GLYCOL 3350 17 GM/Dose PACKET PO SCH ×2 (10:38→18:12)
[2018-01-08 13:27] LABS: FERRITIN 77.8 ng/mL
[2018-01-08 13:57] LABS: FOLATE 5.1 ng/mL
--- NOTE | 2018-01-09 00:42 | PN ---
DATE: 01/08/2018 PULMONARY PROGRESS NOTE REFERRING PHYSICIAN: Jade Melton MD SUBJECTIVELY: She is ambulating in the room. Night was unremarkable. No cough. No sputum production. No nausea. Mild abdominal pain. Had a bowel movement. No leg pain. No leg swelling. OBJECTIVE: GENERAL: In no acute distress. VITAL SIGNS: Temperature is 98, heart rate 62, respiratory rate is 20, blood pressure 148/85, and pulse ox 97% on room air. HEENT: Moist mucous membranes. Crowded airway. NECK: Supple. No JVD. LUNGS: Have fair airflow with rhonchi. HEART: S1, S2. ABDOMEN: Positive bowel sounds. Incision site looks okay. EXTREMITIES: There is no edema. NEUROLOGIC: Awake, alert, follows simple commands. MEDICATIONS: Reviewed and noted. No new changes in medication and reported since yesterday. LABORATORY DATA: Shows hemoglobin 11.2, hematocrit 34.8, WBC 5.9, and platelet is 204. Sed rate 75. Iron is 35, TIBC 258, and ferritin is 77. IMPRESSION AND PLAN: Recurrent hernia status post surgery, hypothyroid, hypertension, obesity, history of irritable bowel syndrome, urinary tract infection. Pulmonary point of view, doing well. Continue incentive spirometer, bronchodilator, pain management, stool softener. Gastric and deep venin thrombosis prophylaxes. Out of bed to chair. Thank you and we will follow with you. Rick Sellers MD
--- NOTE | 2018-01-09 15:56 | DS ---
The patient is a 72 years old female. The patient was admitted on 12/30/2017 and discharged home on 01/08/2018. CHIEF COMPLAINT: Abdominal pain. HISTORY OF PRESENT ILLNESS: Ms. Marizol Hinojosa is a 72 years old female with past medical history of abdominal abscess, irritable bowel syndrome, recurrent incisional hernia and hypertension, came to the emergency department complaining of about 3 days of abdominal pain, described pain as diffuse, burning, intermittent, and scale of 8 out of 10 without radiation to the chest, without fever or chills. We admitted the patient and did CAT scan of the abdomen and pelvis, abdominal x-ray and small bowel x-rays. GI radiographic procedure was done. Dr. Burch did surgery. The patient was seen by Dr. Shetty, GI; was cleared by the Cardiology, Dr. George and computer engineer, Dr. Sellers. Dr. Burch fixed the adhesions and cleared the hernia, and the patient improved, tolerated food. As per Dr. Burch, discontinued the drain and removed some tabitha. Actually, I was planning to take the patient to the TCU for continuity of care until tabitha are removed and the patient's plug is out, but the patient refused to go the TCU, she wanted to go home. As per my discussion with nurse practitioner, Berenice, the patient was discharged home after clearing from the surgery. We will follow up with the surgeon and primary care physician. Meds provided at the bedside. PAST MEDICAL HISTORY: Hypertension, bronchitis, cataracts, hypothyroidism, diverticulosis, FAMILY HISTORY: Father and mother noncontributory. HABITS: Never smoked. No drugs. No ethanol. ALLERGIES: PATIENT IS NOT ALLERGIC TO ANY MEDICATIONS. HOME MEDICATIONS: Reviewed by me. REVIEW OF SYSTEMS: The patient was seen and examined at the bedside, looking comfortable. No fevers. No chills. No nausea, vomiting, or diarrhea. No hematuria. No hematochezia. No swelling of the legs. No chest pain. No palpitation. Rectal examination done shows guaiac positive stool. Otherwise, no overnight event reported. The patient reported five episodes of diarrhea over the past 24 hours, but denies any nausea, vomiting, abdominal pain, hematuria, or hematochezia as per patient. PHYSICAL EXAMINATION: VITAL SIGNS: Temperature 98.1, pulse 63, respiratory rate 20, blood pressure 148/84, pulse oximetry 97. HEENT: Head; normocephalic, atraumatic. Eyes PERRLA. Extraocular muscles intact. Conjunctivae clear. Nose patent. NECK: Supple. No carotid bruit. No JVD or thyromegaly. CHEST: Bilaterally symmetrical. HEART: S1 and S2 positive. LUNGS: Clear to auscultation. ABDOMEN: Soft. Bowel sounds positive. No organomegaly. EXTREMITIES: No edema. No cyanosis. NEUROLOGIC: The patient is awake and alert. Moving all four extremities. No focal deficits. MEDICATIONS: Flexeril, Colace, Lovenox, Paxil, Feosol, Microzide, Toradol, Synthroid, Lidoderm, Zofran, MiraLax, and tramadol. LABORATORY DATA: White blood cells 12.6, hemoglobin 10.7, hematocrit 33.0, platelets 182. Sodium 135, potassium 4.2, BUN 14, creatinine 1.1, glucose 90. ASSESSMENT AND PLAN: Ms. Micaela Fontana is a 72 years old lady with anemia, fibromyalgia, history of uterine cancer , s/p resection, irritable bowel syndrome and hypothyroidism, came with abdominal pain due to abdominal wall hernia, transverse colon ,hernia. The patient has ventral hernia, surgery with the mesh which showed 3 abscess that were removed and the old mesh was attached to the bowel. The patient is postoperative day 6, drain is removed by Dr. Burch. The patient got laxative. Stool occult was positive, seen by steam and power superintendent and Surgery. Pain control. GI and DVT prophylaxis given. Discussion with Dr. Burch and nurse practitioner, Berenice. Appreciate Dr. Burhc', Dr. Sellers's, Dr. Shetty's, and Dr. George's input. Repeat labs. We will follow up. Jade Melton MD MTDD
== END 2018-01-08 19:23 | disposition home or self-care (01) | DRG 336 ==
LOC: ED 15:47 → ERH 23:01 → 5RNO 12-30 00:34 → OBSVTOIN 12-30 04:31 → 5RNO 01-02 17:40
PROVIDERS: ADMIT Internal Medicine; ATTEND Internal Medicine
PROC: 0DNW0ZZ Release Peritoneum, Open Approach (ICD-10-PCS; 2018-01-02)
PROC: 0WUF0JZ Supplement Abdominal Wall with Synthetic Substitute, Open Approach (ICD-10-PCS; principal; 2018-01-02 10:00)
DX: K43.0 Incisional hernia with obstruction, without gangrene (principal); N39.0 Urinary tract infection, site not specified; B96.20 Unspecified Escherichia coli [E. coli] as the cause of diseases classified elsewhere; E87.6 Hypokalemia; I10 Essential (primary) hypertension; E03.9 Hypothyroidism, unspecified; K58.9 Irritable bowel syndrome, unspecified; I25.10 Atherosclerotic heart disease of native coronary artery without angina pectoris; K21.9 Gastro-esophageal reflux disease without esophagitis; D50.9 Iron deficiency anemia, unspecified; I07.1 Rheumatic tricuspid insufficiency; K44.9 Diaphragmatic hernia without obstruction or gangrene; G47.30 Sleep apnea, unspecified; M79.7 Fibromyalgia; M19.90 Unspecified osteoarthritis, unspecified site; M10.9 Gout, unspecified; E66.9 Obesity, unspecified; Z68.33 Body mass index [BMI] 33.0-33.9, adult; Z87.891 Personal history of nicotine dependence; Z85.42 Personal history of malignant neoplasm of other parts of uterus; Z79.82 Long term (current) use of aspirin